=== PATIENT | male | born 1940 | race Caucasian/White ===

== ENCOUNTER 2017-07-24 09:37 | Inpatient (IN) | payer OTHER ==
[2017-07-24] MEDS ORDERED: FAMOTIDINE 20 MG TAB PO ONE (09:43)
[2017-07-24] MEDS ORDERED: DIAZEPAM 5 MG TAB PO ONE (09:43)
[2017-07-24] MEDS ORDERED: diphenhydrAMINE 25 MG CAP PO ONE ×2 (09:43→10:07)
[2017-07-24] MEDS ORDERED: NS 1,000 ML IV ONE (09:43)
[2017-07-24] MEDS ORDERED: ASPIRIN EC 325 MG TAB PO ONE ×2 (09:43→10:07)
--- NOTE | 2017-07-24 10:02 | CPEKG ---
Heart Rate: 88 RR Interval: 682 P-R Interval: 168 QRSD Interval: 112 QT Interval: 420 QTC Interval: 509 P [place]: 72 QRS [place]: 68 T Wave [place]: 61 EKG Severity - ABNORMAL ECG - EKG Impression: SINUS RHYTHM EKG Impression: INCOMPLETE RIGHT BUNDLE BRANCH BLOCK EKG Impression: BORDERLINE ST DEPRESSION, LATERAL LEADS Electronically Signed By: Manish Curry 27-Jul-2017 17:35:53
[2017-07-24] MEDS ORDERED: DIAZEPAM 5 MG TAB ONE (10:07)
[2017-07-24] MEDS ORDERED: FAMOTIDINE 20 MG TAB ONE (10:07)
[2017-07-24 10:31] LABS: % IMMATURE GRANULYOCYTES 0.2 % (0.0-1.1); ABSOLUTE IMMATURE GRANULOCYTES 0.01 10^3/uL (0.00-0.10); ADD DIFF? NO; ADD MORPH? NO; ADD SCAN? NO; ATYPICAL LYMPHOCYTE FLAG 20 (0-99); FRAGMENT RBC FLAG 0 (0-99); HEMATOCRIT 48.8 % (40.0-51.0); HEMOGLOBIN 16.8 g/dL (13.7-17.5); LEFT SHIFT FLG 0 (0-99); LIPEMIA HEMOLYSIS FLAG 90 (0-99); MEAN CELL HEMOGLOBIN 29.8 pg (27.9-34.1); MEAN CELL HEMOGLOBIN CONCENTR. 34.4 g/dL (32.4-36.7); MEAN CELL VOLUME 86.7 fL (81.5-99.8); MEAN PLATELET VOLUME 8.9 fL (8.7-11.7); PLATELET CLUMPS FLAG 0 (0-99); PLATELET COUNT 190 10^3/uL (150-400); RED BLOOD CELL COUNT 5.63 10^6/uL (4.40-6.38)
[2017-07-24 10:40] LABS: INR 1.03 (0.83-1.16); PROTIME(PATIENT) 13.4 SEC (12.0-15.0)
--- NOTE | 2017-07-24 10:43 | PDPROPOC ---
Sedation Plan of Care Sedation Plan of Care: vital signs stable, mental status noted, patient educated of risks, benefits, alternatives, patient can tolerate sedation ASA Classification: ASA 2 Planned drugs: fentanyl, midazolam Mallampati Score: Class 2 Mallampati Reference Image: Patient passed 3-3-2 rule?: Yes
--- NOTE | 2017-07-24 10:44 | PDHPUP ---
History & Physical Update H&P update statement: This history and physical update is based on an assessment of the patient which was completed after admission or registration (within 24 hours), but prior to the surgery/procedure. H&P update: H&P reviewed & patient examined, no change in patient's condition since H&P completed
[2017-07-24 10:45] LABS: ANION GAP 13 mEq/L (8-16); CALCIUM 9.8 mg/dL (8.5-10.4); CARBON DIOXIDE 24 mEq/l (22-31); CHLORIDE 102 mEq/L (97-110); CHOLESTEROL 207 mg/dL (140-220); CHOLESTEROL/HDL RATIO 7.14 RATIO (1.00-4.97); CREATININE 0.9 mg/dL (0.7-1.3); GLOMERULAR FILTRATION RATE > 60; GLUCOSE 150 mg/dL (70-100); HIGH DENSITY LIPOPROTEIN 29 mg/dL (40-65); LDL/HDL RATIO 4.59 RATIO (1.00-3.64); LOW DENSITY LIPOPROTEIN 133 mg/dL (80-100); MAGNESIUM 1.9 mg/dL (1.6-2.3); NON-HIGH DENSITY LIPOPROTEIN 178 mg/dL (90-129); POTASSIUM 3.6 mEq/L (3.5-5.2); SODIUM 139 mEq/L (134-144); TRIGLYCERIDE 226 mg/dL (40-150); VERY LOW DENSITY LIPOPROTEINS 45 mg/dL (8-25)
[2017-07-24] MEDS ORDERED: LIDOCAINE 1% 300 MG/30 ML SDV ONE (10:53)
[2017-07-24] MEDS ORDERED: VERAPAMIL 5 MG/2 ML VIAL ONE (10:54)
[2017-07-24] MEDS ORDERED: MIDAZOLAM 2 MG/2 ML VIAL ONE (10:54)
[2017-07-24] MEDS ORDERED: IOPAMIDOL (ISOVUE-370) 150 ML BTL IV ONE (10:54)
[2017-07-24] MEDS ORDERED: HEPARIN 10,000 UNIT/10 ML MDV ONE (10:54)
[2017-07-24] MEDS ORDERED: fentaNYL 100 MCG/2 ML INJ ONE (10:54)
[2017-07-24] MEDS ORDERED: ATROPINE SULFATE 1 MG/10 ML SYR IVP PRN (12:01)
[2017-07-24] MEDS ORDERED: ONDANSETRON 4 MG/2 ML VIAL IVP PRN (12:01)
[2017-07-24] MEDS ORDERED: NITROGLYCERIN 0.4 MG BTL SL PRN (12:01)
--- NOTE | 2017-07-24 12:01 | POSTOPPROG ---
Post Op Note Date of Operation: 07/24/17 Surgeon: Halle Amaya Anesthesia: IV Sedation Pre-op Diagnosis: CAD, unstable angina Post-op Diagnosis: multivessel CAD Indication: unstable angina Procedure: LHC, cor angio, LV gram Findings: multivessel CAD Inf/Abcess present in the surg proc area at time of surgery?: No EBL: Minimal Total fluids administered: 150 cc NS Complications: none Specimen(s): none
[2017-07-24] MEDS ORDERED: D50W 25 GM/50 ML SYR IVP PRN (15:24)
--- NOTE | 2017-07-24 16:03 | PDGENHP ---
History and Physical - Chief Complaint Severe 3VD - History of Present Illness [address] Stock on 07/23 with c/o exertional left neck and jaw pain, a decrease in physical stamina, and frequent night sweats s/p LHC today and found to have severe 3-vessel CAD in need of surgical revascularization. Pt denies associated light-headedness, nausea, chest pain, SOB, abdominal pain, or LE edema. History Information - Allergies/Home Medication List Allergies/Adverse Reactions: JOSH Inhibitors Allergy (Severe, Verified 07/24/17 10:42) Cough cimetidine [From Tagamet] Allergy (Severe, Verified 07/24/17 10:42) Other-Enter Comments atorvastatin Allergy (Verified 07/23/17 17:58) Other-Enter Comments Sulfa (Sulfonamide Antibiotics) Allergy (Verified 06/25/14 17:56) Rash Home Medications: Aspirin EC [Aspirin EC 325 mg (*)] 325 mg PO HS 07/24/17 [Last Taken 07/22/17] Azelastine [Astelin Nasal [place] (RX)] 1 sprays EACHNARE HS 07/24/17 [Last Taken 07/22/17] Chlorthalidone [Chlorthalidone 25 mg (*)] 25 mg PO DAILY 07/24/17 [Last Taken ] Cholecalciferol Vit D3 [Vitamin D3 (*)] 1,000 units PO HS 07/24/17 [Last Taken 07/22/17] Cyanocobalamin [Vitamin B12 (*)] 1,000 mcg PO DAILY 07/24/17 [Last Taken ] Glimepiride [Amaryl 2 MG (*)] 2 mg PO DAILY 07/24/17 [Last Taken 07/23/17] Herbals/Supplements -Info Only 1 ea PO DAILY 07/24/17 [Last Taken Unknown] Multivitamins [Multivitamin (*)] 1 each PO HS 07/24/17 [Last Taken 07/22/17] Rosuvastatin Calcium [Crestor 10mg (RX)] 10 mg PO HS 07/24/17 [Last Taken ] Tamsulosin HCl [Flomax 0.4 MG (*)] 0.8 mg PO DAILY 07/24/17 [Last Taken 07/23/17 ] metFORMIN HCL [Glucophage 500 mg (*)] 1,000 mg PO BIDMEAL 07/24/17 [Last Taken 07/23/17 09:00] I have personally reviewed and updated: family history, medical history, social history, surgical history - Past Medical History diabetes type 2, hyperlipidemia Additional medical history: renal stones, BPH, prostate cancer s/p seed implantation, pyloric stenosis, retinal detachment, cataracts - Surgical History Additional surgical history: TURP, urethral stent placement, prostate seed implantation, cataract surgery, retinal surgery, pyloric stenosis - Social History Smoking Status: Never smoked Alcohol Use: None Drug Use: None Review of Systems Review of Systems: Constitutional: Reports: diaphoresis EENMT: Reports: sore throat Cardiac: Denies: chest pain, edema, lightheadedness, palpitations Respiratory: Denies: cough, shortness of breath Gastrointestinal: Denies: abdominal pain Genitourinary: Denies: dysuria, frequency, incontinence Muscolosketal: Reports: joint pain (left jaw), neck pain (left) Skin: Reports: no symptoms Neurological: Reports: no symptoms Physical Exam Physical Exam: Constitutional: no apparent distress, appears nourished, not in pain Eyes: anicteric sclera Ears, Nose, Mouth, Throat: moist mucous membranes, hearing normal Cardiovascular: regular rate and rhythym, No systolic murmur Peripheral Pulses: 2+: dorsalis-pedis (R), dorsalis-pedis (L) Respiratory: no respiratory distress, no rales or rhonchi, clear to auscultation Gastrointestinal: soft, non-tender abdomen Skin: warm, normal color, mottled Neurologic: AAOx3 Psychiatric: interacting appropriately, not anxious, not encephalopathic, thought process linear Lab Data & Imaging Review 07/24/17 10:24 07/24/17 10:24 WBC 4.44 10^3/uL (3.80-9.50) 07/24/17 10:24 RBC 5.63 10^6/uL (4.40-6.38) 07/24/17 10:24 Hgb 16.8 g/dL (13.7-17.5) 07/24/17 10:24 Hct 48.8 % (40.0-51.0) 07/24/17 10:24 MCV 86.7 fL (81.5-99.8) 07/24/17 10:24 MCH 29.8 pg (27.9-34.1) 07/24/17 10:24 MCHC 34.4 g/dL (32.4-36.7) 07/24/17 10:24 RDW 14.0 % (11.5-15.2) 07/24/17 10:24 Plt Count 190 10^3/uL (150-400) 07/24/17 10:24 MPV 8.9 fL (8.7-11.7) 07/24/17 10:24 Neut % (Auto) 44.7 % (39.3-74.2) 07/24/17 10:24 Lymph % (Auto) 41.9 % (15.0-45.0) 07/24/17 10:24 [place] % (Auto) 9.2 % (4.5-13.0) 07/24/17 10:24 Eos % (Auto) 2.9 % (0.6-7.6) 07/24/17 10:24 Baso % (Auto) 1.1 % (0.3-1.7) 07/24/17 10:24 Nucleat RBC Rel Count 0.0 % (0.0-0.2) 07/24/17 10:24 Absolute Neuts (auto) 1.98 10^3/uL (1.70-6.50) 07/24/17 10:24 Absolute Lymphs (auto) 1.86 10^3/uL (1.00-3.00) 07/24/17 10:24 Absolute Monos (auto) 0.41 10^3/uL (0.30-0.80) 07/24/17 10:24 Absolute Eos (auto) 0.13 10^3/uL (0.03-0.40) 07/24/17 10:24 Absolute Basos (auto) 0.05 10^3/uL (0.02-0.10) 07/24/17 10:24 Absolute Nucleated RBC 0.00 10^3/uL (0-0.01) 07/24/17 10:24 Immature Gran % 0.2 % (0.0-1.1) 07/24/17 10:24 Immature Gran # 0.01 10^3/uL (0.00-0.10) 07/24/17 10:24 PT 13.4 SEC (12.0-15.0) 07/24/17 10:24 INR 1.03 (0.83-1.16) 07/24/17 10:24 Sodium 139 mEq/L (134-144) 07/24/17 10:24 Potassium 3.6 mEq/L (3.5-5.2) 07/24/17 10:24 Chloride 102 mEq/L (97-110) 07/24/17 10:24 Carbon Dioxide 24 mEq/l (22-31) 07/24/17 10:24 Anion Gap 13 mEq/L (8-16) 07/24/17 10:24 BUN 23 mg/dL (7-23) 07/24/17 10:24 Creatinine 0.9 mg/dL (0.7-1.3) 07/24/17 10:24 Estimated GFR > 60 07/24/17 10:24 Glucose 150 mg/dL (70-100) H 07/24/17 10:24 Calcium 9.8 mg/dL (8.5-10.4) 07/24/17 10:24 Magnesium 1.9 mg/dL (1.6-2.3) 07/24/17 10:24 Triglycerides 226 mg/dL (40-150) H 07/24/17 10:24 Cholesterol 207 mg/dL (140-220) 07/24/17 10:24 Cholesterol Risk Factr 1.8 (0.2-1.0) H 07/24/17 10:24 LDL Cholesterol, Calc 133 mg/dL (80-100) H 07/24/17 10:24 LDL Risk Factor 1.4 (0.2-1.0) H 07/24/17 10:24 VLDL Cholesterol 45 mg/dL (8-25) H 07/24/17 10:24 Non-HDL Cholesterol 178 mg/dL (90-129) H 07/24/17 10:24 HDL Cholesterol 29 mg/dL (40-65) L 07/24/17 10:24 LDL/HDL Ratio 4.59 RATIO (1.00-3.64) H 07/24/17 10:24 Cholesterol/HDL Ratio 7.14 RATIO (1.00-4.97) H 07/24/17 10:24 Imaging Review: CXR, carotids and TTE pending EKG Interpretation: Positive for: normal sinsus rhythm Assessment & Plan Assessment: 77M with severe 3VD Plan: For CABG 07/27 at 1:[address] Jones
[2017-07-24] MEDS: METOPROLOL TARTRATE 25 MG TAB PO SCH ×2 (17:14→21:03)
--- NOTE | 2017-07-24 17:25 | CPIP ---
[f rep st] INVASIVE CARDIAC PROCEDURE DATE OF PROCEDURE: 07/24/2017 Cardiac Catheterization Report PROCEDURES: 1. Left heart catheterization. 2. Coronary angiography. 3. Left ventriculography. COMPLICATIONS: None apparent. INDICATIONS: Crescendo angina in a patient with known coronary disease. DESCRIPTION OF PROCEDURE: N.p.o. status was confirmed, informed consent obtained, and time-out perfo rmed. The patient was brought to the catheterization laboratory and prepped and draped in sterile fa shion. Adequate conscious sedation was achieved with Versed and fentanyl IV. 1% lidocaine was used for local anesthesia of the right radial area. Using modified Seldinger technique, a 5-[place] introd ucer sheath was placed in the right radial artery. JL-4 catheter was used to image the right coronar y artery. JL3.5 catheter was used for left coronary angiography. Pigtail catheter was used for left ventriculography. FINDINGS: 1. Right coronary artery is dominant. There is diffuse coronary disease throughout this vessel with serial 60% to 70% lesions in the mid vessel, 80% bifurcation disease at the level of the PDA and PLV branches. There is evidence of collaterals to the left anterior descending artery from the right co ronary system. 2. The left main is heavily calcified. It is a short segment. It bifurcates into the LAD and left circumflex systems. There is approximately 40% left main stenosis. 3. The LAD is heavily calcified throughout its course. It is 100% occluded in its midportion just a fter the 2nd diagonal. There is a trickle of flow into the distal vessel. There are 2 principal luiza gonals. Each appear diffusely diseased with ostial stenosis of 60% off the LAD. 4. The left circumflex is heavily calcified and diffusely diseased. There is a very large obtuse ma rginal branch with subbranches. In the proximal obtuse marginal there is a 99% stenosis. In the mid obtuse marginal there is another 99% stenosis. The circumflex proper is diffusely diseased without flow-limiting stenosis. . LEFT VENTRICULOGRAPHY: The left ventricular ejection fraction is 55% with apical hypokinesis. Visua lized portions of the ascending and descending aorta appear normal. HEMODYNAMICS: Aortic pressure is 112/72, LV pressure 115/12 with an end-diastolic pressure of 17. T here is no significant gradient upon pullback from the LV into the aorta, indicating no significant a ortic stenosis. CONCLUSIONS: 1. Significant multivessel disease in this patient with hypertension and diabetes. Plan for cardiot horacic surgery consultation for consideration of surgical revascularization. 2. Fairly normal left heart filling pressures. 3. The patient's right radial arteriotomy site was sealed with a TR band. He was taken to [facility] in st able condition. Results discussed with the patient and his . /[id number]/MODL
[2017-07-24] MEDS: INSULIN LISPRO 100 UNIT/ML SC SCH (17:33)
--- NOTE | 2017-07-24 17:46 | GHP ---
[f rep st] HISTORY AND PHYSICAL DATE OF ADMISSION: 07/24/2017 Cardiology Admission History and Physical. PRIMARY PROMOTION WRITER: Dr. Joey Stock. CHIEF COMPLAINT: Multivessel coronary disease with unstable angina. HISTORY OF PRESENT ILLNESS: The patient is a very pleasant 77-year-old male with a history of high p ositive calcium score (2000), diabetes, hypertension, and dyslipidemia. He has previously had proble ms with CK elevation with statins, but has recently been tolerating Crestor. He was seen by Dr. Stock yesterday in clinic. His chief complaint was throat and neck discomfort no table with exercise and associated with significant diaphoresis. This is primarily on the left side of his throat in the base of his jaw. He describes discomfort as a 10/10. Symptoms were relieved wi th rest. He has not had dyspnea, palpitations, or syncope. Over the past few weeks, his symptoms have progressed such that just walking around his house causes throat and jaw discomfort. Because of his accelerating symptoms highly suspicious for angina, he was admitted for coronary angiogram today, performed by me. Please see separate report. In summary, the patient has severe multivessel disease including RCA and PDA disease, significant disease of a large obtuse marginal, and complete occlusion of the mid LAD w ith [id number] collaterals. His ejection fraction is 55% with apical hypokinesis. Overall fairly normal left heart filling pressures. He is now being admitted with unstable angina for planned surg ical revascularization early next week. ALLERGIES: JOSH inhibitors, cimetidine, atorvastatin, and sulfa. REVIEW OF SYSTEMS: A full 10-point Review of Systems was performed, was negative except that which w as outlined in History of Present Illness. PAST MEDICAL HISTORY: 1. Coronary disease. 2. Hypertension. 3. Dyslipidemia. 4. Diabetes. 5. BPH. 6. History of kidney stones. 7. Prostate cancer. 8. History of osteomyelitis of his right ankle when he was a teenager. OUTPATIENT MEDICATIONS: Aspirin 325 mg daily; coenzyme Q10; folic acid; losartan 25 mg daily; metfor min, which has been held for his procedure; Crestor 10 mg daily; tamsulosin. SOCIAL HISTORY: The patient is . His and son are at the bedside. He is a retired profe ssor. He does not smoke cigarettes or drink significant amount of alcohol. PHYSICAL EXAM: VITAL SIGNS: Blood pressure 117/80, heart rate 84, oxygen saturation 94% on room air . GENERAL: Well-appearing older male in no acute distress. CARDIOVASCULAR: Regular rate and rhyth m without murmur or gallop. LUNGS: Clear to auscultation bilaterally. There are rhonchi. ABDOMEN: Soft, nontender, nondistended without bruits, masses, or hepatosplenomegaly. EXTREMITIES: Warm an d well perfused without cyanosis, clubbing, or edema. Intact distal pulses. NEURO: Alert and orien annabella x3 without gross focal neurologic deficits. LABORATORY DATA: CBC is normal. INR normal. Basic metabolic panel is normal except for glucose of 150. Triglycerides 226. LDL 133. EKG: Sinus rhythm. Nonspecific interventricular conduction delay. Carotid ultrasound and echocardiogram are pending. ASSESSMENT AND PLAN: 77-year-old male found to have multivessel coronary disease including occlusion of his mid left anterior descending on angiogram. His symptoms of unstable angina with progressive exertional angina now occurring at very low levels of activity. Given his severe multivessel disease and unstable symptoms, he does warrant inpatient admission and cardiac surgery evaluation. 1. Coronary disease: He will be on aspirin, statin. Will add beta lauryn. Continue angiotensin r eceptor lauryn. Tentative plan is for Dr. Jones to perform coronary bypass on Thursday, July 2n d. Await carotid Doppler studies and echocardiogram, but he does not have a history of valvular dise ase or a murmur on exam. 2. Hypertension: Continue outpatient medications and add beta lauryn. 3. Diabetes: Insulin sliding scale. Hold metformin for 48 hours post catheterization. Resume glim epiride. 4. Dyslipidemia: His low-density lipoprotein is not at goal, but he recently just started Crestor. Continue this. 5. Code status: Full. 6. Prophylaxis: We will put him on sequential compression devices and low-dose Lovenox. /[id number]/MODL
[2017-07-24] MEDS: ASPIRIN EC 325 MG TAB PO SCH (21:02)
[2017-07-24] MEDS: CHOLECALCIFEROL VIT D3 1,000 UNITS TAB PO SCH (21:02)
[2017-07-24] MEDS: ROSUVASTATIN CALCIUM 10 MG TAB PO SCH (21:04)
[2017-07-24] MEDS: AZELASTINE 0.15% EACHNARE SCH (21:09)
[2017-07-25 05:07] LABS: ANION GAP 11 mEq/L (8-16); CALCIUM 9.7 mg/dL (8.5-10.4); CARBON DIOXIDE 24 mEq/l (22-31); CHLORIDE 103 mEq/L (97-110); CREATININE 0.9 mg/dL (0.7-1.3); GLOMERULAR FILTRATION RATE > 60; GLUCOSE 136 mg/dL (70-100); POTASSIUM 3.9 mEq/L (3.5-5.2); SODIUM 138 mEq/L (134-144)
[2017-07-25] MEDS: TAMSULOSIN HCL 0.4 MG CAP PO SCH (08:02)
[2017-07-25] MEDS: CYANO/VITAMIN B12 1000 MCG TAB PO SCH (08:03)
[2017-07-25] MEDS: METOPROLOL TARTRATE 25 MG TAB PO SCH ×2 (08:03→20:55)
[2017-07-25] MEDS: GLIMEPIRIDE 2 MG TAB PO SCH (08:03)
[2017-07-25] MEDS: CHLORTHALIDONE 25 MG TAB PO SCH (08:03)
[2017-07-25] MEDS: ENOXAPARIN 40 MG/0.4 ML SYR SC SCH (08:05)
[2017-07-25] MEDS: INSULIN LISPRO 100 UNIT/ML SC SCH ×3 (08:08→18:03)
--- NOTE | 2017-07-25 10:53 | ECHO ---
[email or web address] [address] [address] Main: [phone] Fax: Transthoracic Echocardiogram Name: CHUYITA SONG MR#: [id number] Study Date: 07/25/2017 Study Time: 07:15 AM Date of : 1940 Age: 77 year(s) Height: 241.3 cm (95 in.) Weight: 94.35 kg (208 lb.) BSA: 2.65 m2 Gender: Male Examination: Echo Indication: Pre op CABG Image Quality: Contrast: Requested by: Halle Amaya BP: 134 mmHg/86 mmHg Heart Rate: Rhythm: Indication: Pre op CABG Procedure Staff Auto Rebuilder: Melany Ayers Reading Physician: Edvin Sanders Requesting Provider: Conclusions: 1)Low normal LV systolic function with a LVEF of 53% and possible focal apical wall motion abnormality. 2)Mild diastolic dysfunction noted. 3)Moderate aortic valve sclerosis without stenosis. Mild AI noted. 4)Mild TR with estimated normal PA pressures. 5)Moderately enlarged ascending thoracic aorta (4.1cm). Measurements: Chambers Valvular Assessment AV/MV Valvular Assessment TV/PV Normal Normal Normal Name Value Range Name Value Range Name Value Range Ao Christina (MM): 4.1 cm (2.2 cm-3.7 AV Vmax: 0.75 m/s (1 m/s-1.7 TR Vmax: 2.28 mm/s ( - ) cm) m/s) TR PGmax: 21 mmHg ( - ) IVSd (2D): 0.9 cm (0.6 cm-1.1 AV maxP mmHg ( - ) syst. PAP: 26 mmHg ( - ) cm) MV E Vmax: 0.39 m/s ( - ) LVDd (2D): 4.8 cm (4.2 cm-5.9 MV A Vmax: 0.70 m/s ( - ) cm) MV E/A: 0.56 ( - ) LVDs (2D): 3.1 cm (2.1 cm-4 cm) LVPWd (2D): 0.9 cm (0.6 cm-1 cm) LVEF (MOD4): 53 % (>=55 %) Continued Measurements: Chambers Valvular Assessment AV/MV Valvular Assessment TV/PV Name Value Name Value Name Value LADs: 3.6 cm MV E/E' Septal: 7.80 CVP (est.): 5 mmHg LADs Lon.7 cm MV E/E' Lateral: 9.30 Patient: CHUYITA SONG Study Date: 07/25/2017 Page 1 of 2 07:15 AM LA Area: 14.0 cm2 LA Volume: 33 ml LA Volume Index: 12.5 ml/m2 Findings: Left Ventricle: Normal size left ventricle. The LVEF is 53%. Overall poor echo images but could have focal apical wall motion abnormality. There is mild diastolic dysfunction noted. Right Ventricle: Normal size right ventricle. Left Atrium: The left atrium is normal in size. Right Atrium: The right atrium is normal in size. Mitral Valve: The mitral valve is normal in appearance. There is no MV prolapse. Aortic Valve: The aortic valve is tri-leaflet. The aortic leaflets are mildy sclerotic. Mild aortic valve regurgitation is present. Tricuspid Valve: The tricuspid valve appears normal. Mild tricuspid regurgitation is present. The pulmonary artery pressure is normal. Pulmonic Valve: The pulmonic valve is normal in appearance. Pericardium: No pericardial effusion. There is pericardial fat. (No Signature Object) Patient: CHUYITA SONG Study Date: 07/25/2017 Page 2 of 2 07:15 AM [id number]
--- NOTE | 2017-07-25 13:05 | PDCARPN ---
Cardiology Progress Note Chief Complaint: Patient reports fatigue of waiting for surgery. Assessment/Plan: Assessment: Mr Horan is a 77-year-old male with significant past history hyper tension comma hyperlipidemia, diabetes, and subclinical CAD based off of cardiac calcium scoring 1999. Recently seen in our office for complain of neck discomfort for with exercise with associated diaphoresis. Underwent cardiac catheterization on 07/[address] Amaya noting to have significant multivessel disease, EF was 55% with apical hypokinesis. CT surgery consultation was done, and patient waiting to undergo CABG scheduled for July 27Thursday morning. Echocardiogram done this morning showing EF 53%, mild diastolic dysfunction, mild AI, mild TR. Patient reports today that he has had no chest pain, jaw pain, shortness of breath, diaphoresis, or symptoms suggesting of ischemia. He has been up in walking the PCU without difficulties. Continuous cardiac monitoring has noted him to be in sinus rhythm with occasional premature ventricular contraction. Right wrist site, catheter insertion site, without redness, swelling, drainage, or ecchymosis. Capillary refill in right hand within normal limits, +2 radial pulses. Plan: 1. CAD: 3 VD, plan for CABG on Thursday. Patient continue on aspirin therapy, started on beta-lauryn, tolerating well. Remains on statin therapy. 2. Hypertension: Well controlled. Patient has continued on home chlorthalidone and in addition to new metoprolol dosage. Continue to monitor. 3. Hyperlipidemia: Continue on home dose Crestor. LDL on admission was 133, consideration increasing dosage post surgery. 4. Diabetes: Metformin on hold, sliding-scale insulin, resumed glimepride 5. BPH: Patient has resume home dose of Flomax. 6. DVT prophylaxis: Patient on prophylactic dose Lovenox 07/25/17 13:03 Subjective: Patient denies of any chest pressure, pain, shortness of breath, orthopnea, PND, lightheadedness, palpitations, near-syncope, or syncopal events. Reviewed/Discussed With: family (Patient and son), other (Alessia GUTIERREZ CT surgery, Dr Mitchell) Objective: Vital Signs (8 Hrs) Temp Pulse Resp BP Pulse Ox 07/25/17 12:07 36.5 C 88 18 124/78 H 94 Intake/Output (24 Hrs) 07/24/17 07/25/17 07/26/17 05:59 05:59 05:59 Intake Total 2100 Balance 2100 Intake: Oral (ml) 1600 IV Intake (ml) 500 Other: Weight 94.8 kg 94.8 kg Intake Quantity Yes Sufficient Number of Voids Toilet 1 Result Diagrams: 07/24/17 10:24 07/25/17 04:04 - Physical Exam Constitutional: WDWN, healthy appearing, no apparent distress Ears, Nose, Mouth, Throat: moist mucous membranes Cardiovascular: regular rate and rhythm, no murmurs, no rubs, pulses symmetric bilat, No jugular vein distention, No carotid bruit Peripheral Pulses: 2+: carotid (R), carotid (L), dorsalis-pedis (R), dorsalis- pedis (L) Respiratory: clear to auscultate bilat, no crackles, no wheezes Gastrointestinal: normoactive bowel sounds, no tenderness, no masses Skin: no rashes, warm, no edema, other ( Right wrist, catheter insertion site, without redness swelling drainage ecchymosis, or hematoma. Cap refill to right hand within limits.) Neurologic: AAOx3 Psychiatric: cooperative, interactive, following commands ICD10 Worksheet Patient Problems: Problems Problem Status Onset Acute unilateral obstructive uropathy Acute
--- NOTE | 2017-07-25 16:30 | ASMTCMCOM ---
CM Note CM Note Notes: Reviewed chart re: d/c poc, pt's progress. Pt admitted w/ left neck and jaw pain. LHC revealed severe 3 vessel dx. Pt to have scheduled CABG on Thursday07/27/17. Pt has a supportive . Discharge needs remain TBD at this time. CM will cont to follow. Date Signed: 07/25/2017 04:29 PM Electronically Signed By:Vilma Ballard RN
[2017-07-25] MEDS: ROSUVASTATIN CALCIUM 10 MG TAB PO SCH (20:53)
[2017-07-25] MEDS: CHOLECALCIFEROL VIT D3 1,000 UNITS TAB PO SCH (20:57)
[2017-07-25] MEDS: ASPIRIN EC 325 MG TAB PO SCH (20:58)
[2017-07-26] MEDS: AZELASTINE 0.15% EACHNARE SCH ×2 (00:21→22:40)
[2017-07-26 05:22] LABS: ANION GAP 11 mEq/L (8-16); CALCIUM 9.7 mg/dL (8.5-10.4); CARBON DIOXIDE 23 mEq/l (22-31); CHLORIDE 103 mEq/L (97-110); GLOMERULAR FILTRATION RATE > 60; GLUCOSE 154 mg/dL (70-100); MAGNESIUM 2.1 mg/dL (1.6-2.3); POTASSIUM 4.1 mEq/L (3.5-5.2); SODIUM 137 mEq/L (134-144)
--- NOTE | 2017-07-26 09:08 | SOAPPROG ---
TIFFANY Progress Note Assessment/Plan: Assessment: 77 y/o man with exertional angina, IDDM and found to have multivessel obstructive CAD with LVEF 55% and mild valvular abnormalities. Overall doing okay with no recurrent angina, decompensated CHF sx or signs of infection. PLAN: 1)no change in current meds. 2)carotid u/s done and pending. 3)vascular studies not done yet. 4)needs to meet CT surgery and have questions answered. 5)plan for CABG tommorrow Thursday at 1pm. 07/26/17 09:05 Subjective: denies recurrent CP or throat tightness. No fevers, chills, cough or melena. Ambulating hallway slowly without sx. Objective: Vital Signs Temp Pulse Resp BP Pulse Ox 37.2 C 93 15 120/81 H 94 07/26/17 08:00 07/26/17 08:00 07/26/17 08:00 07/26/17 08:00 07/26/17 08:00 Laboratory Results 07/24/17 10:24 07/26/17 04:25 07/25/17 07/26/17 07/27/17 05:59 05:59 05:59 Intake Total 2100 900 Balance 2100 900 PT 13.4 SEC (12.0-15.0) 07/24/17 10:24 INR 1.03 (0.83-1.16) 07/24/17 10:24 Physical Exam - Physical Exam General Appearance: alert, obese EENT: normal ENT inspection Neck: non-tender Respiratory: lungs clear Cardiac/Chest: regular rate, rhythm, systolic murmur (1/6 MILADIS heard), No gallop , No JVD Peripheral Pulses: 2+: carotid (R), carotid (L), femoral (R), femoral (L), dorsalis-pedis (R), dorsalis-pedis (L) Abdomen: non-tender, No organomegaly, No rebound Skin: warm/dry Extremities: No pedal edema Neuro/Psych: oriented x 3 ICD10 Worksheet Patient Problems: Problems Problem Status Onset Acute unilateral obstructive uropathy Acute
[2017-07-26] MEDS: ENOXAPARIN 40 MG/0.4 ML SYR SC SCH (09:14)
[2017-07-26] MEDS: METOPROLOL TARTRATE 25 MG TAB PO SCH ×2 (09:14→22:36)
[2017-07-26] MEDS: CYANO/VITAMIN B12 1000 MCG TAB PO SCH (09:14)
[2017-07-26] MEDS: TAMSULOSIN HCL 0.4 MG CAP PO SCH (09:15)
[2017-07-26] MEDS: CHLORTHALIDONE 25 MG TAB PO SCH (09:15)
[2017-07-26] MEDS: GLIMEPIRIDE 2 MG TAB PO SCH (09:16)
[2017-07-26] MEDS: INSULIN LISPRO 100 UNIT/ML SC SCH ×3 (09:16→18:20)
[2017-07-26] MEDS ORDERED: MUPIROCIN 2% 22 GM OINT NS ONE (09:31)
[2017-07-26] MEDS ORDERED: MAGNESIUM HYDROXIDE 30 ML UDCUP PO PRN (14:13)
[2017-07-26] MEDS ORDERED: BISACODYL 10 MG SUPP PR PRN (14:13)
[2017-07-26] MEDS ORDERED: LACTULOSE 20 GM/30 ML UDCUP PO PRN (14:13)
[2017-07-26] MEDS ORDERED: POLYETHYLENE GLYCOL 3350 17 GM PKT PO PRN (14:13)
[2017-07-26] MEDS ORDERED: CHLORHEXIDINE GLUC HIBICLENS 118 ML BTL TP SCH (21:00)
[2017-07-26] MEDS: ASPIRIN EC 325 MG TAB PO SCH (22:00)
[2017-07-26] MEDS: SENNOSIDES/DOCUSATE SODIUM TAB PO SCH (22:35)
[2017-07-26] MEDS: CHOLECALCIFEROL VIT D3 1,000 UNITS TAB PO SCH (22:36)
[2017-07-26] MEDS: ROSUVASTATIN CALCIUM 10 MG TAB PO SCH (22:36)
[2017-07-27 01:55] LABS: HEMOGLOBIN A1C 7.1 % (4.0-6.0)
[2017-07-27] MEDS: MUPIROCIN 2% 22 GM OINT NS SCH ×2 (06:23→09:52)
[2017-07-27] MEDS ORDERED: CHLORHEXIDINE GLUC HIBICLENS 118 ML BTL TP ONE (08:00)
[2017-07-27] MEDS: TAMSULOSIN HCL 0.4 MG CAP PO SCH (09:49)
[2017-07-27] MEDS: INSULIN LISPRO 100 UNIT/ML SC SCH (09:49)
[2017-07-27] MEDS: SENNOSIDES/DOCUSATE SODIUM TAB PO SCH (09:50)
[2017-07-27] MEDS: METOPROLOL TARTRATE 25 MG TAB PO SCH (09:50)
[2017-07-27] MEDS: CHLORTHALIDONE 25 MG TAB PO SCH (09:51)
[2017-07-27] MEDS: CYANO/VITAMIN B12 1000 MCG TAB PO SCH (09:51)
[2017-07-27] MEDS ORDERED: AMINOCAPROIC ACID 5 GM/20 ML VIAL IV ONE (10:00)
[2017-07-27] MEDS ORDERED: PHENYLEPHRINE HCL 50 MG in NS 250 ML IV ONE (10:00)
[2017-07-27] MEDS ORDERED: MANNITOL 20% 50 GM/250 ML BAG IV ONE (10:00)
[2017-07-27] MEDS ORDERED: CITRATE DEXTROSE SOLN 500 ML BAG MISC ONE (10:00)
[2017-07-27] MEDS ORDERED: VERAPAMIL 5 MG, NITROGLYCERIN 2.5 MG, HEPARIN 500 UNIT, SODIUM BICARBONATE 0.2 MEQ in L... MISC ONE (10:00)
[2017-07-27] MEDS ORDERED: INSULIN REGULAR HUMAN 100 UNIT in NS 100 ML IV ONE (10:00)
[2017-07-27] MEDS ORDERED: niCARdipine/NACL 200 ML IV SCH (10:00)
[2017-07-27] MEDS ORDERED: SODIUM BICARBONATE 20 MEQ, LIDOCAINE 1% 10 ML in NORMOSOL-R 1,000 ML MISC ONE (10:00)
[2017-07-27] MEDS ORDERED: NOREPINEPHRINE BITARTRATE 16 MG in NS 250 ML IV ONE (10:00)
[2017-07-27] MEDS ORDERED: PAPAVERINE HCL 60 MG in NS 100 ML IV ONE (10:00)
[2017-07-27] MEDS ORDERED: ceFAZolin 2 GM/DEXTROSE 100 ML IV ONE (10:00)
--- NOTE | 2017-07-27 11:33 | ASMTCMCOM ---
CM Note CM Note Notes: Pt chart reviewed. He is for surgery later today or maybe tomorrow. Needs TBD after that. CM to follow. Date Signed: 07/27/2017 11:33 AM Electronically Signed By:Felipa Cotter RN
[2017-07-27] MEDS ORDERED: ROCURONIUM 100 MG/10 ML VIAL ONE (11:42)
[2017-07-27] MEDS ORDERED: PHENYLEPHRINE 10 MG/ML SDV ONE (11:42)
[2017-07-27] MEDS ORDERED: LIDOCAINE 2% 5 ML SDV ONE (11:43)
[2017-07-27] MEDS ORDERED: POTASSIUM Cl (KCl) 20 MEQ/50 ML BAG IV ONE ×2 (12:02→14:59)
[2017-07-27] MEDS ORDERED: MILRINONE/DEXTROSE/100 ML BAG IV ONE ×2 (12:02→14:59)
[2017-07-27] MEDS ORDERED: PROTAMINE SULFATE 50 MG/5 ML VIAL IVP ONE ×2 (12:02→14:58)
[2017-07-27] MEDS ORDERED: CALCIUM CHLORIDE 1 GM/10 ML INJ ONE ×3 (12:02→14:59)
[2017-07-27] MEDS ORDERED: AMINOCAPROIC ACID 5 GM/20 ML VIAL ONE ×3 (12:03→15:00)
[2017-07-27] MEDS ORDERED: NA BICARBONATE 50 MEQ/50 ML VIAL ONE ×3 (12:03→15:00)
[2017-07-27] MEDS ORDERED: DOPamine/DEXTROSE/250 ML BAG IV ONE ×2 (12:03→15:00)
[2017-07-27] MEDS ORDERED: niCARdipine/NACL/200 ML BAG IV ONE ×2 (12:03→15:00)
[2017-07-27] MEDS ORDERED: ADENOSINE 6 MG/2 ML VIAL ONE ×2 (12:04→15:01)
[2017-07-27] MEDS ORDERED: ceFAZolin 1 GM VIAL ONE ×2 (12:04→15:02)
[2017-07-27] MEDS ORDERED: AMIODARONE HCL 150 MG/3 ML VIAL ONE ×3 (12:04→15:01)
[2017-07-27] MEDS ORDERED: HEPARIN 10,000 UNIT/10 ML MDV ONE ×3 (12:04→15:01)
[2017-07-27] MEDS ORDERED: ALBUMIN 5% 250 ML BOTTLE IV ONE (12:05)
[2017-07-27] MEDS ORDERED: MAGNESIUM SULFATE 1 GM/2 ML VIAL ONE (12:06)
[2017-07-27] MEDS ORDERED: CITRATE DEXTROSE SOLN 500 ML BAG ONE (12:06)
[2017-07-27] MEDS ORDERED: LIDOCAINE 2% 100 MG/5 ML SYR ONE (12:06)
[2017-07-27] MEDS ORDERED: methylPREDNISolone SOD SUCC 1 GM/8 ML VIAL ONE (12:07)
[2017-07-27] MEDS ORDERED: THROMBIN (BOVINE) 5,000 UNIT VIAL TP ONE ×2 (12:20→19:13)
[2017-07-27] MEDS ORDERED: VANCOMYCIN 1 GM VIAL ONE ×2 (12:20→19:13)
[2017-07-27] MEDS ORDERED: MIDAZOLAM 2 MG/2 ML VIAL IVP ONE ×2 (12:21→19:25)
--- NOTE | 2017-07-27 12:23 | PDANEPAE ---
ANE History of Present Illness cab ANE Past Medical History - Cardiovascular History Hx Hypertension: Yes Hx Chest Pain: Yes Hx Coronary Artery / Peripheral Vascular Disease: Yes Hx CHF / Valvular Disease: No Hx Palpitations: No - Pulmonary History Hx COPD: No Hx Asthma/Reactive Airway Disease: No Hx Recent Upper Respiratory Infection: No Hx Oxygen in Use at Home: No Hx Sleep Apnea: No Sleep Apnea Screening Result - Last Documented: Negative - Neurologic History Hx Cerebrovascular Accident: No Hx Seizures: No Hx Dementia: No - Endocrine History Hx Diabetes: Yes Hypothyroid: No Hyperthyroid: No Obesity: no - Renal History Hx Renal Disorders: Yes Renal History Comment: multiple kidney stones - Liver History Hx Hepatic Disorders: No - Chronic Pain History Chronic Pain: No ANE Review of Systems Review of Systems: - Exercise capacity Exercise capacity: <4 METS ANE Patient History - Allergies Allergies/Adverse Reactions: JOSH Inhibitors Allergy (Severe, Verified 07/24/17 10:42) Cough cimetidine [From Tagamet] Allergy (Severe, Verified 07/24/17 10:42) Other-Enter Comments atorvastatin Allergy (Verified 07/23/17 17:58) Other-Enter Comments Sulfa (Sulfonamide Antibiotics) Allergy (Verified 06/25/14 17:56) Rash - Home Medications Home Medications: Aspirin EC [Aspirin EC 325 mg (*)] 325 mg PO HS 07/24/17 [Last Taken 07/22/17] Azelastine [Astelin Nasal [place] (RX)] 1 sprays EACHNARE HS 07/24/17 [Last Taken 07/22/17] Chlorthalidone [Chlorthalidone 25 mg (*)] 25 mg PO DAILY 07/24/17 [Last Taken ] Cholecalciferol Vit D3 [Vitamin D3 (*)] 1,000 units PO HS 07/24/17 [Last Taken 07/22/17] Cyanocobalamin [Vitamin B12 (*)] 1,000 mcg PO DAILY 07/24/17 [Last Taken ] Glimepiride [Amaryl 2 MG (*)] 2 mg PO DAILY 07/24/17 [Last Taken 07/23/17] Herbals/Supplements -Info Only 1 ea PO DAILY 07/24/17 [Last Taken Unknown] Multivitamins [Multivitamin (*)] 1 each PO HS 07/24/17 [Last Taken 07/22/17] Rosuvastatin Calcium [Crestor 10mg (RX)] 10 mg PO HS 07/24/17 [Last Taken ] Tamsulosin HCl [Flomax 0.4 MG (*)] 0.8 mg PO DAILY 07/24/17 [Last Taken 07/23/17 ] metFORMIN HCL [Glucophage 500 mg (*)] 1,000 mg PO BIDMEAL 07/24/17 [Last Taken 07/23/17 09:00] - NPO status NPO Status: no food or drink >8 hours NPO Since - Liquids (Date): 07/27/17 NPO Since - Liquids (Time): 00:01 NPO Since - Solids (Date): 07/27/17 NPO Since - Solids (Time): 00:01 - Smoking Hx Smoking Status: Never smoked - Alcohol Use Alcohol Use: None ANE Labs/Vital Signs - Labs Result Diagrams: 07/24/17 10:24 07/26/17 04:25 - Vital Signs Blood Pressure: 113/89 Heart Rate: 88 Respiratory Rate: 17 O2 Sat (%): 95 Height: 187.2 cm Weight: 93.5 kg ANE Physical Exam - Airway Mallampati Score: Class 2 Mouth exam: normal dental/mouth exam - Pulmonary Pulmonary: no respiratory distress - Cardiovascular Cardiovascular: no murmur, rub, or gallop - ASA Status ASA Status: III ANE Anesthesia Plan Anesthesia Plan: general endotracheal anesthesia Lines/Monitors: arterial line, central line, ARNAUD
[2017-07-27] MEDS ORDERED: PROPOFOL 200 MG/20 ML VIAL ONE (12:34)
[2017-07-27] MEDS ORDERED: fentaNYL 100 MCG/2 ML INJ ONE ×5 (12:34)
[2017-07-27] MEDS ORDERED: LR 1,000 ML IV ONE (12:37)
[2017-07-27] MEDS ORDERED: CEFAZOLIN 2 GM/DEXTROSE/100 ML BAG IV ONE (12:54)
[2017-07-27] MEDS ORDERED: MIDAZOLAM 2 MG/2 ML VIAL ONE ×2 (13:04→22:05)
--- NOTE | 2017-07-27 13:06 | PDHPUP ---
History & Physical Update H&P update statement: This history and physical update is based on an assessment of the patient which was completed after admission or registration (within 24 hours), but prior to the surgery/procedure. H&P changes: preop imaging unremarkable
[2017-07-27] MEDS ORDERED: PHENYLEPHRINE HCL 100 MCG/ML SYR ONE ×2 (20:10→20:59)
[2017-07-27] MEDS ORDERED: PROPOFOL/EMULSION 500 MG/50 ML BOTTLE IV ONE (21:44)
[2017-07-27] MEDS ORDERED: NS 1,000 ML IV SCH (23:45)
[2017-07-27] MEDS ORDERED: PROPOFOL/EMULSION 1,000 MG/100 ML BOTTLE IV ONE (23:45)
[2017-07-27] MEDS ORDERED: INSULIN REGULAR HUMAN 100 UNIT in NS 100 ML IV SCH (23:45)
[2017-07-27] MEDS ORDERED: fentanYL/NACL/100 ML BAG IV ONE (23:46)
--- NOTE | 2017-07-27 23:47 | POSTOPPROG ---
Post Op Note Date of Operation: 07/27/17 Surgeon: Alf Jones Car Inspection And Repair Manager: Kelly Perdomo PA-C Anesthesiologist: Finesse Isidro Anesthesia: GET(General Endotracheal) Pre-op Diagnosis: symptomatic multivessel CAD Post-op Diagnosis: same Indication: crescendo angina Procedure: CABG x 3, SÁNCHEZ-LAD, SV-OM1, SV-PDA Findings: poor targets w diffusely calcified vessels Inf/Abcess present in the surg proc area at time of surgery?: No EBL: unable to quantify Drains: Other (clarisse chest tubes x 2)
[2017-07-27] MEDS ORDERED: METOCLOPRAMIDE 10 MG/2 ML VIAL IVP PRN (23:50)
[2017-07-27] MEDS ORDERED: ONDANSETRON 4 MG/2 ML VIAL IVP PRN (23:50)
[2017-07-27] MEDS ORDERED: MEPERIDINE 25 MG/ML SYR IVP PRN (23:50)
[2017-07-27] MEDS ORDERED: fentaNYL 100 MCG/2 ML INJ IVP PRN (23:50)
[2017-07-27] MEDS ORDERED: ACETAMINOPHEN 325 MG TAB PO PRN (23:50)
[2017-07-27] MEDS ORDERED: MAGNESIUM SULF 2 GM/WATER 50 ML IV ONE (23:50)
[2017-07-27] MEDS ORDERED: PANTOPRAZOLE SODIUM 40 MG in NS 100 ML IV ONE (23:50)
[2017-07-27] MEDS ORDERED: ONDANSETRON DISINTEGRATING 4 MG TAB PO PRN (23:50)
[2017-07-27] MEDS ORDERED: POTASSIUM Cl (KCl) 20 MEQ in NS 50 ML IV PRN (23:50)
[2017-07-27] MEDS ORDERED: SODIUM CL NASAL 45 ML BTL EACHNARE PRN (23:50)
[2017-07-27] MEDS ORDERED: ACETAMINOPHEN 650 MG SUPP PR PRN (23:50)
[2017-07-27] MEDS ORDERED: CEPACOL LOZENGE PO PRN (23:50)
[2017-07-28] MEDS ORDERED: NALOXONE HCL 0.4 MG/ML INJ IVP PRN
--- NOTE | 2017-07-28 00:03 | POSTANESTH ---
Post Anesthetic Evaluation Cardiovascular Status: Normal, Stable Respiratory Status: Other, See Comment (stable on vent) Level of Consciousness/Mental Status: Other, See Comment (sedated with propofol) Pain Control: Adequate, Prn Tx Ordered Nausea/Vomiting Control: Adequate, Prn Tx Ordered Complications Possibly Related to Anesthesia: None Noted
[2017-07-28] MEDS ORDERED: PROPOFOL/EMULSION 100 ML IV SCH (00:04)
[2017-07-28] MEDS ORDERED: fentaNYL/NACL 100 ML IV SCH (00:04)
--- NOTE | 2017-07-28 00:33 | CPEKG ---
Heart Rate: 92 RR Interval: 652 P-R Interval: 172 QRSD Interval: 114 QT Interval: 420 QTC Interval: 520 P [place]: 67 QRS [place]: 63 T Wave [place]: 64 EKG Severity - ABNORMAL ECG - EKG Impression: SINUS RHYTHM EKG Impression: INCOMPLETE RIGHT BUNDLE BRANCH BLOCK EKG Impression: BORDERLINE R WAVE PROGRESSION, ANTERIOR LEADS Electronically Signed By: Chad Pollard 28-Jul-2017 08:43:29
[2017-07-28] MEDS ORDERED: NOREPINEPHRINE BITARTRATE 16 MG in NS 250 ML IV SCH (00:45)
[2017-07-28] MEDS: INSULIN LISPRO 100 UNIT/ML SC SCH ×5 (01:18→17:16)
[2017-07-28] MEDS: ALBUMIN 5% 250 ML IV PRN ×2 (01:32→03:42)
[2017-07-28] MEDS: POTASSIUM Cl (KCl) 20 MEQ in NS 50 ML IV PRN ×5 (02:39→21:06)
[2017-07-28] MEDS: MUPIROCIN 2% 22 GM OINT NS SCH ×3 (03:51→21:15)
[2017-07-28] MEDS: AZELASTINE 0.15% EACHNARE SCH ×2 (03:51→22:13)
[2017-07-28 05:01] LABS: CALCULATED OXYGEN SATURATION 94 % (92-95); O2 CONCENTRATIION 60 % (0-100)
[2017-07-28] MEDS: ceFAZolin 2 GM/DEXTROSE 100 ML IV SCH ×3 (05:27→21:06)
[2017-07-28 05:30] LABS: % IMMATURE GRANULYOCYTES 0.2 % (0.0-1.1); ABSOLUTE IMMATURE GRANULOCYTES 0.02 10^3/uL (0.00-0.10); ADD DIFF? NO; ADD MORPH? NO; ADD SCAN? NO; ATYPICAL LYMPHOCYTE FLAG 0 (0-99); BASE EXCESS -2.3 mEq/L (-2.5-2.5); BICARBONATE 23 mEq/L (22-26); FRAGMENT RBC FLAG 0 (0-99); HEMATOCRIT 36.3 % (40.0-51.0); HEMOGLOBIN 12.3 g/dL (13.7-17.5); LEFT SHIFT FLG 0 (0-99); LIPEMIA HEMOLYSIS FLAG 90 (0-99); MEAN CELL HEMOGLOBIN 30.3 pg (27.9-34.1); MEAN CELL HEMOGLOBIN CONCENTR. 33.9 g/dL (32.4-36.7); MEAN CELL VOLUME 89.4 fL (81.5-99.8); MEASURED OXYGEN SATURATION 98 % (92-95); PCO2 44 mmHg (34-38); PLATELET CLUMPS FLAG 0 (0-99); PLATELET COUNT 150 10^3/uL (150-400); PO2 103 mmHg (65-75); RED BLOOD CELL COUNT 4.06 10^6/uL (4.40-6.38); RED CELL DISTRIBUTION WIDTH 14.1 % (11.5-15.2); TCO2 24 mEq/L (23-27)
[2017-07-28 05:37] LABS: CPAP YES; END TIDAL CO2 30; O2 CONCENTRATIION 40 % (0-100); P/F RATIO 258 RATIO; PRESSURE SUPPORT 7
[2017-07-28 05:38] LABS: PATIENT RATE 7
[2017-07-28 06:34] LABS: ANION GAP 8 mEq/L (8-16); CALCIUM 8.2 mg/dL (8.5-10.4); CARBON DIOXIDE 22 mEq/l (22-31); CHLORIDE 109 mEq/L (97-110); CREATININE 0.9 mg/dL (0.7-1.3); GLOMERULAR FILTRATION RATE > 60; GLUCOSE 144 mg/dL (70-100); POTASSIUM 4.5 mEq/L (3.5-5.2); SODIUM 139 mEq/L (134-144)
[2017-07-28] MEDS: NS 1,000 ML IV SCH ×2 (07:00→12:13)
--- NOTE | 2017-07-28 07:31 | SOAPPROG ---
SOAP Progress Note Assessment/Plan: POD #1: CABGx3 (SÁNCHEZ-LAD, SVG-OM1, SVG-PDA) Unstable angina/severe 3VD s/p CABGx3 - Wean Levophed for MAPs 65 - BB/ASA/statin when appropriate - AL to remain while on Levo, FC to be dc'd, CT to remain on suction Acute blood loss anemia - Stable without the need for blood product transfusions DM 2, well-controlled - Insulin gtt to be transitioned to ISS - Metformin and Amaryl to resume once eating h/o prostate CA s/p brachytherapy with obstructive and irritative LUTS - Will resume Flomax Subjective: No complaints. Comfortable. Objective: Vital Signs Temp Pulse Resp BP Pulse Ox 36.9 C 92 12 97/49 L 97 07/28/17 06:00 07/28/17 06:00 07/28/17 06:00 07/28/17 06:00 07/28/17 06:00 Laboratory Results 07/28/17 05:21 07/28/17 05:21 07/27/17 07/28/17 07/29/17 05:59 05:59 05:59 Intake Total 100 619.9 Output Total 1485 Balance 100 -865.1 PT 13.4 SEC (12.0-15.0) 07/24/17 10:24 INR 1.03 (0.83-1.16) 07/24/17 10:24 Physical Exam - Physical Exam General Appearance: WD/WN, alert, no apparent distress EENT: No scleral icterus (R), No scleral icterus (L) Neck: normal inspection Respiratory: No respiratory distress Cardiac/Chest: regular rate, rhythm Abdomen: non-tender, soft, No distended Skin: normal color, warm/dry Extremities: No pedal edema Neuro/Psych: no motor/sensory deficits, alert, normal mood/affect, oriented x 3 ICD10 Worksheet Patient Problems: Problems Problem Status Onset Acute blood loss anemia Acute CAD, multiple vessel Acute Exertional angina Acute S/P CABG x 3 Acute ~07/27/17 BPH (benign prostatic hyperplasia) Chronic Diabetes mellitus type 2, controlled Chronic
[2017-07-28] MEDS ORDERED: ALBUMIN 5% 250 ML IV ONE (09:24)
--- NOTE | 2017-07-28 10:07 | GCON ---
[f rep st] CONSULTATION RETORT SETTER CONSULTATION Patient examined postoperatively after receiving multiple vessel coronary artery bypass grafts. 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 He is examined postoperatively after receiving a 4-vessel CABG. His surgery was late in the evening. He was not extubated until early t his morning. The patient is currently awake and alert. He is complaining of some chest pain. He de nies any shortness of breath, however, he is still somewhat groggy. PAST MEDICAL HISTORY: Significant for coronary artery disease, hyperlipidemia, benign prostatic hype rtrophy, prostate cancer, kidney stones, diabetes, hypertension. ALLERGIES: JOSH inhibitors, cimetidine, atorvastatin, sulfa. SOCIAL HISTORY: No history of tobacco use. Infrequent alcohol use. He is has excellent horsham clinicy support. He is a retired professor. MEDICATIONS: At home include Crestor, tamsulosin, metformin, losartan, folic acid, aspirin, coenzyme -Q. PHYSICAL EXAM: VITAL SIGNS: Blood pressure 107/56, pulse is 90, respirations 11, temperature 36.6, oxygen saturation 95% on 2 L. GENERAL: He is a well-developed, well-nourished, 77-year-old, white m ankur, who is resting comfortably on supplemental oxygen. HEENT: Eyes are PERRLA, EOMI. Throat shows no erythema or tonsillar hypertrophy. NECK: Supple. There is no cervical adenopathy. HEART: Reg ular rate and rhythm with a 2/6 systolic murmur at left sternal border without radiation. CHEST: In cision is healing. LUNGS: Showed diminished breath sounds, but no wheeze. ABDOMEN: Soft, nontender. Bowel sounds are present in all 4 quadrants. EXTREMITIES: No clubbing, cyanosis, or edema. LABORATORIES: White count 11.3, hemoglobin 11, hematocrit 36, platelet count is 150. Sodium is 140, potassium 4.0, chloride 106, CO2 is 22, BUN is 20, creatinine 0.9, glucose is 144. Arterial blood g as: PH 7.33, pCO2 of 44, pO2 of 103, bicarb is 21, oxygen saturation is 94%, that was on mechanical ventilation. Chest x-ray shows tubes in good position, otherwise clear. IMPRESSION: 1. Status post 4-vessel coronary artery bypass graft. 2. Coronary artery disease. 3. Hypertension. 4. Diabetes. 5. History of prostate cancer. RECOMMENDATIONS: 1. Adequate pain control. 2. Continue supplemental oxygen at this time. 3. Aggressive blood sugar control. 4. Deep vein thrombosis and pulmonary embolus prophylaxis, holding anticoagulation for now. 5. Stress ulcer prophylaxis. 6. PT and OT. /[id number]/MODL
[2017-07-28] MEDS: PANTOPRAZOLE SODIUM 40 MG TAB PO SCH (10:19)
[2017-07-28] MEDS ORDERED: CALCIUM CHLORIDE 1 GM/10 ML INJ ONE (11:10)
--- NOTE | 2017-07-28 11:41 | ASMTCMCOM ---
CM Note CM Note Notes: Patient in ICU after CABG x 4. Patient lives with his . Therapies to evaluate and tx and determine discharge needs.CM to follow. Date Signed: 07/28/2017 11:41 AM Electronically Signed By:Juana Gonsalves LCSW
[2017-07-28] MEDS ORDERED: FUROSEMIDE 20 MG/2 ML VIAL IVP ONE (14:24)
[2017-07-28] MEDS: METOPROLOL TARTRATE 25 MG TAB PO SCH ×2 (14:50→21:07)
[2017-07-28] MEDS: OXYCODONE/APAP 5/325 TAB PO PRN ×2 (14:51→22:18)
[2017-07-28] MEDS: HYDROCODONE/APAP 5/325 TAB PO PRN (22:18)
[2017-07-29] MEDS: HYDROCODONE/APAP 5/325 TAB PO PRN (04:44)
[2017-07-29 05:26] LABS: ANION GAP 7 mEq/L (8-16); CALCIUM 8.7 mg/dL (8.5-10.4); CARBON DIOXIDE 28 mEq/l (22-31); CHLORIDE 103 mEq/L (97-110); CREATININE 0.9 mg/dL (0.7-1.3); GLOMERULAR FILTRATION RATE > 60; GLUCOSE 126 mg/dL (70-100); POTASSIUM 4.3 mEq/L (3.5-5.2); SODIUM 138 mEq/L (134-144)
[2017-07-29 05:32] LABS: % IMMATURE GRANULYOCYTES 0.2 % (0.0-1.1); ABSOLUTE IMMATURE GRANULOCYTES 0.02 10^3/uL (0.00-0.10); ADD DIFF? NO; ADD MORPH? NO; ADD SCAN? NO; ATYPICAL LYMPHOCYTE FLAG 10 (0-99); FRAGMENT RBC FLAG 0 (0-99); HEMATOCRIT 40.3 % (40.0-51.0); HEMOGLOBIN 13.3 g/dL (13.7-17.5); LEFT SHIFT FLG 0 (0-99); LIPEMIA HEMOLYSIS FLAG 80 (0-99); MEAN PLATELET VOLUME 9.5 fL (8.7-11.7); PLATELET CLUMPS FLAG 0 (0-99); PLATELET COUNT 155 10^3/uL (150-400); RED BLOOD CELL COUNT 4.43 10^6/uL (4.40-6.38); RED CELL DISTRIBUTION WIDTH 14.5 % (11.5-15.2)
[2017-07-29] MEDS: ceFAZolin 2 GM/DEXTROSE 100 ML IV SCH ×2 (06:42→14:27)
--- NOTE | 2017-07-29 08:12 | SOAPPROG ---
SOAP Progress Note Assessment/Plan: Assessment: POD#2 CABGx3 (SÁNCHEZ-LAD, SVG-OM1, SVG-PDA), EVH left thigh Sx CAD w borderline low LV systolic fx - s/p CABGx3. Improved LV systolic fx post revasc. No prolonged vasoactive support or dysrhythmias. No significant volume overload. Secondary prevention with ASA, BB, and statin. AF prophylaxis w BB. Acute expected blood loss anemia - Stable. No transfusions required. VTE prophylaxis w SCDs. DM2 - Well-controlled by preop A1c of 7.1%. Postop hyperglycemia managed with insulin gtt, transitioning to SSI. OHAs to resume in staggered fashion pending oral intake and stability of renal fx. Hx prostate CA, brachytherapy and irritative LUTS - Controlled on Flomax. No voiding difficulties post gerardo removal. Plan: Convert blakes to bulb suction. Cont metoprolol 12.5 mg BID. Start 1/2 dose home Metformin. Switch to oral diuresis. Resume Crestor. Resume Flomax. Inc activity as tolerated. Tx to PCU. 07/29/17 08:07 Subjective: Feels fine. No nausea or dizziness. Slept well. Good dinner. Satisfactory analgesia. 1 lap around ICU last noc well tolerated. IS ~ 1,000. Objective: Vital Signs Temp Pulse Resp BP Pulse Ox 36.6 C 88 15 99/59 L 98 07/29/17 08:00 07/29/17 08:00 07/29/17 08:00 07/29/17 08:00 07/29/17 08:00 Laboratory Results 07/29/17 05:00 07/29/17 05:00 07/28/17 07/29/17 07/30/17 05:59 05:59 05:59 Intake Total 619.9 2743 Output Total 1485 3800 Balance -865.1 -1057 PT 13.4 SEC (12.0-15.0) 07/24/17 10:24 INR 1.03 (0.83-1.16) 07/24/17 10:24 SR with MAPs 70s. Min suppl O2 req. Excellent diuresis post IV lasix. +6 kg overall. Labs as expected. FSBG < 180. Physical Exam - Physical Exam General Appearance: alert, no apparent distress Respiratory: crackles (bases), other (blakes x 2 to pleurovac, serosang drainage , +tidal, no air leak) Cardiac/Chest: regular rate, rhythm, friction rub, other (Sternum grossly stable. Sternotomy and LLE venotomy CDI. Vwires intact.) Abdomen: non-tender, soft Skin: warm/dry Extremities: swelling (trace - 1+ dependent), other ICD10 Worksheet Patient Problems: Problems Problem Status Onset Acute blood loss anemia Acute CAD, multiple vessel Acute Exertional angina Acute S/P CABG x 3 Acute ~07/27/17 BPH (benign prostatic hyperplasia) Chronic Diabetes mellitus type 2, controlled Chronic
[2017-07-29] MEDS: MUPIROCIN 2% 22 GM OINT NS SCH (08:42)
[2017-07-29] MEDS: METOPROLOL TARTRATE 25 MG TAB PO SCH ×2 (08:43→21:48)
[2017-07-29] MEDS: ASPIRIN 81 MG CHEWABLE TAB PO SCH (08:43)
[2017-07-29] MEDS: OXYCODONE/APAP 5/325 TAB PO PRN (08:43)
[2017-07-29] MEDS: INSULIN LISPRO 100 UNIT/ML SC SCH ×3 (08:43→18:26)
[2017-07-29] MEDS: PANTOPRAZOLE SODIUM 40 MG TAB PO SCH (08:43)
--- NOTE | 2017-07-29 08:52 | PDINTPN ---
Fiberglass Technician Progress Note Assessment/Plan: Assessment: * Coronary artery disease * Status post multivessel coronary artery bypass graft * Hyperlipidemia * History of prostate cancer * Diabetes-controlled * Pain-markedly improved * Hypertension-controlled Plan: PT/OT Out of bed to chair Continue pain control Subjective: Sitting up in bed. Comfortable. Pain is tolerable. Objective: Vital Signs Temp Pulse Resp BP Pulse Ox 36.6 C 88 15 99/59 L 98 07/29/17 08:00 07/29/17 08:00 07/29/17 08:00 07/29/17 08:00 07/29/17 08:00 Laboratory Results 07/29/17 05:00 07/29/17 05:00 07/28/17 07/29/17 07/30/17 05:59 05:59 05:59 Intake Total 619.9 2743 Output Total 1485 3800 Balance -865.1 -1057 PT 13.4 SEC (12.0-15.0) 07/24/17 10:24 INR 1.03 (0.83-1.16) 07/24/17 10:24 Physical Exam - Physical Exam General Appearance: WD/WN, alert, no apparent distress EENT: PERRL/EOMI, normal ENT inspection, pharynx normal, TMs normal Neck: non-tender, full range of motion, supple, normal inspection Respiratory: crackles (Few basilar), No respiratory distress, No wheezing Cardiac/Chest: normal peripheral pulses, regular rate, rhythm, systolic murmur Peripheral Pulses: 2+: carotid (R), carotid (L), femoral (R), femoral (L), dorsalis-pedis (R), dorsalis-pedis (L) Abdomen: normal bowel sounds, non-tender, soft Male Genitalia: deferred Rectal: deferred Skin: normal color, warm/dry Extremities: normal range of motion, non-tender, normal inspection, normal capillary refill Neuro/Psych: no motor/sensory deficits, alert, normal mood/affect, oriented x 3 ICD10 Worksheet Patient Problems: Problems Problem Status Onset Acute blood loss anemia Acute CAD, multiple vessel Acute Exertional angina Acute S/P CABG x 3 Acute ~07/27/17 BPH (benign prostatic hyperplasia) Chronic Diabetes mellitus type 2, controlled Chronic
[2017-07-29] MEDS: metFORMIN HCL 500 MG TAB PO SCH ×2 (10:27→18:24)
[2017-07-29] MEDS: GLIMEPIRIDE 2 MG TAB PO SCH (10:28)
[2017-07-29] MEDS: TAMSULOSIN HCL 0.4 MG CAP PO SCH (10:28)
[2017-07-29] MEDS: SENNOSIDES/DOCUSATE SODIUM TAB PO SCH ×2 (10:28→21:50)
--- NOTE | 2017-07-29 13:29 | SOAPPROG ---
SOAP Progress Note Assessment/Plan: Assessment: Plan: Subjective: Afebrile VSS NSR Hct 40.3% BMP nl Good UO Up in chair. Minimal pain. Eating Lungs bibasilar rhonchi Cor RRR Wound clean Stable postop. Objective: Vital Signs Temp Pulse Resp BP Pulse Ox 36.6 C 84 17 98/50 L 92 07/29/17 08:00 07/29/17 11:50 07/29/17 11:50 07/29/17 11:50 07/29/17 11:50 Laboratory Results 07/29/17 05:00 07/29/17 05:00 07/28/17 07/29/17 07/30/17 05:59 05:59 05:59 Intake Total 619.9 2743 Output Total 1485 3800 Balance -865.1 -1057 PT 13.4 SEC (12.0-15.0) 07/24/17 10:24 INR 1.03 (0.83-1.16) 07/24/17 10:24 ICD10 Worksheet Patient Problems: Problems Problem Status Onset Acute blood loss anemia Acute CAD, multiple vessel Acute Exertional angina Acute S/P CABG x 3 Acute ~07/27/17 chronic disease mgmt/transitional care Acute BPH (benign prostatic hyperplasia) Chronic Diabetes mellitus type 2, controlled Chronic
[2017-07-29] MEDS ORDERED: FUROSEMIDE 40 MG TAB PO SCH (15:00)
[2017-07-29] MEDS: POTASSIUM CL 20 MEQ TAB PO SCH ×2 (15:51→21:48)
[2017-07-29] MEDS: ROSUVASTATIN CALCIUM 10 MG TAB PO SCH (21:48)
[2017-07-30] MEDS: AZELASTINE 0.15% EACHNARE SCH ×2 (05:49→20:38)
[2017-07-30] MEDS ORDERED: NS 500 ML IV ONE (06:00)
--- NOTE | 2017-07-30 07:31 | SOAPPROG ---
SOAP Progress Note Assessment/Plan: POD #3: CABGx3 (SÁNCHEZ-LAD, SVG-OM1, SVG-PDA), EVH L Unstable angina/severe 3VD s/p CABGx3 - BB/ASA/statin - All chest tubes wires out - SCDs alone for thromboprophylaxis Acute blood loss anemia - Stable without the need for blood product transfusions DM 2, well-controlled - Metformin and Amaryl restarted h/o prostate CA s/p brachytherapy with obstructive and irritative LUTS - No voiding issue, continue Flomax Disposition - Home Thursday without services Subjective: Feels well. Denies light-headedness or weakness. Objective: Vital Signs Temp Pulse Resp BP Pulse Ox 36.9 C 108 H 16 82/61 L 96 07/30/17 04:00 07/30/17 04:00 07/30/17 04:00 07/30/17 04:00 07/30/17 04:00 Laboratory Results 07/29/17 05:00 07/29/17 05:00 07/29/17 07/30/17 07/31/17 05:59 05:59 05:59 Intake Total 2743 720 Output Total 3800 2450 Balance -1057 -1730 PT 13.4 SEC (12.0-15.0) 07/24/17 10:24 INR 1.03 (0.83-1.16) 07/24/17 10:24 Physical Exam - Physical Exam General Appearance: WD/WN, alert, no apparent distress EENT: No scleral icterus (R), No scleral icterus (L) Neck: normal inspection Respiratory: No respiratory distress Cardiac/Chest: regular rate, rhythm Abdomen: non-tender, soft, No distended Skin: normal color, warm/dry Extremities: No pedal edema Neuro/Psych: no motor/sensory deficits, alert, normal mood/affect, oriented x 3 ICD10 Worksheet Patient Problems: Problems Problem Status Onset Acute blood loss anemia Acute CAD, multiple vessel Acute Exertional angina Acute S/P CABG x 3 Acute ~07/27/17 chronic disease mgmt/transitional care Acute BPH (benign prostatic hyperplasia) Chronic Diabetes mellitus type 2, controlled Chronic
[2017-07-30] MEDS: SENNOSIDES/DOCUSATE SODIUM TAB PO SCH ×2 (09:06→20:37)
[2017-07-30] MEDS: metFORMIN HCL 500 MG TAB PO SCH ×2 (09:07→17:21)
[2017-07-30] MEDS: METOPROLOL TARTRATE 25 MG TAB PO SCH ×2 (09:07→20:36)
[2017-07-30] MEDS: GLIMEPIRIDE 2 MG TAB PO SCH (09:07)
[2017-07-30] MEDS: ASPIRIN 81 MG CHEWABLE TAB PO SCH (09:07)
[2017-07-30] MEDS: TAMSULOSIN HCL 0.4 MG CAP PO SCH (09:07)
[2017-07-30] MEDS: PANTOPRAZOLE SODIUM 40 MG TAB PO SCH (09:07)
[2017-07-30] MEDS: INSULIN LISPRO 100 UNIT/ML SC SCH ×3 (09:10→18:26)
[2017-07-30] MEDS: CYANO/VITAMIN B12 1000 MCG TAB PO SCH (09:11)
[2017-07-30] MEDS ORDERED: NS 1,000 ML IV SCH (10:45)
--- NOTE | 2017-07-30 12:37 | ASMTCMCOM ---
CM Note CM Note Notes: CM spoke w/ BRENDA Cisneros regarding d/c POC. Pt will be discharging w/ cardaic rehab when pt is medically stable w/ supportive . CM met w/ pt and to discuss dispo plan. Pt and are agreeable to cardiac rehab. CM available for changes. Date Signed: 07/30/2017 12:36 PM Electronically Signed By:BRUNA Prince
[2017-07-30 15:45] LABS: HEMOGLOBIN 12.8 g/dL (13.7-17.5)
[2017-07-30] MEDS: ROSUVASTATIN CALCIUM 10 MG TAB PO SCH (20:37)
[2017-07-30] MEDS ORDERED: AMIODARONE HCL 100 ML IV ONE (21:09)
[2017-07-30] MEDS ORDERED: AMIODARONE HCL 200 ML IV ONE (21:09)
[2017-07-30] MEDS: CHOLECALCIFEROL VIT D3 1,000 UNITS TAB PO SCH (22:25)
[2017-07-30] MEDS: HEPARIN 5,000 UNIT/0.5 ML SYR SC SCH (22:25)
[2017-07-30] MEDS: MULTIVITAMINS 1 EACH TAB PO SCH (22:25)
[2017-07-31] MEDS ORDERED: AMIODARONE HCL 540 MG in D5W 300 ML IV ONE (04:30)
[2017-07-31] MEDS: HEPARIN 5,000 UNIT/0.5 ML SYR SC SCH ×3 (04:31→21:03)
[2017-07-31 05:41] LABS: ANION GAP 8 mEq/L (8-16); CALCIUM 9.3 mg/dL (8.5-10.4); CARBON DIOXIDE 27 mEq/l (22-31); CHLORIDE 101 mEq/L (97-110); CREATININE 0.9 mg/dL (0.7-1.3); GLOMERULAR FILTRATION RATE > 60; GLUCOSE 144 mg/dL (70-100); POTASSIUM 4.1 mEq/L (3.5-5.2); SODIUM 136 mEq/L (134-144)
--- NOTE | 2017-07-31 06:45 | SOAPPROG ---
SOAP Progress Note Assessment/Plan: Assessment: POD#4 CABGx3 (SÁNCHEZ-LAD, SVG-OM1, SVG-PDA), EVH left thigh Sx CAD w borderline low LV systolic fx - s/p CABGx3. Improved LV systolic fx post revasc. No prolonged vasoactive support or bradydysrhythmias. No significant volume overload. Tubes and wires out. Secondary prevention with ASA , BB, and statin. Postoperative PAF - Converted to SR with amio. Adjunctive escalation of BB as allowed by BP. Acute expected blood loss anemia - Stable. No transfusions required. VTE prophylaxis w SQ hep. DM2 - Well-controlled by preop A1c of 7.1%. Postop hyperglycemia managed with insulin gtt, transitioning to SSI and home OHAs. Hx prostate CA, brachytherapy and irritative LUTS - Controlled on Flomax. No voiding difficulties post gerardo removal. Plan: Inc metoprolol to 25 mg BID. Transition amio to oral tonight. Cont inc activity as tolerated. Dispo - Home tomorrow if rhythm controlled. 07/31/17 06:41 Subjective: Hectic night "IVs and such", slept poorly and tired this am. Objective: Vital Signs Temp Pulse Resp BP Pulse Ox 36.7 C 89 16 117/76 97 07/31/17 04:00 07/31/17 04:00 07/31/17 04:00 07/31/17 04:00 07/31/17 04:00 Laboratory Results 07/30/17 15:35 07/31/17 04:30 07/30/17 07/31/17 08/01/17 05:59 05:59 05:59 Intake Total 1220 2716.7 Output Total 3650 3995 300 Balance -2430 -1278.3 -300 PT 13.4 SEC (12.0-15.0) 07/24/17 10:24 INR 1.03 (0.83-1.16) 07/24/17 10:24 In and out of AT, AF last night. SR restored with amio. SBPs > 100s-110. Adequate RA sats, put back on O2 during dysrhthmias. Vigorous autodiuresis cont. Now within 2 kg admit wt. CXR -> no pulm vasc congestion, tiny residual left pl eff. Improving glycemic control. No correctional insulin yest. - Pending Discharge Pending Discharge Within 24 Hours: Yes Pending Discharge Date: 08/01/17 Pending Discharge Time: 11:00 Physical Exam - Physical Exam General Appearance: alert, no apparent distress Respiratory: decreased breath sounds (left base) Cardiac/Chest: regular rate, rhythm, other (Sternotomy and LLE venotomy CDI) Abdomen: non-tender, soft Skin: normal color, warm/dry Extremities: swelling (trace) ICD10 Worksheet Patient Problems: Problems Problem Status Onset Acute blood loss anemia Acute CAD, multiple vessel Acute Exertional angina Acute S/P CABG x 3 Acute ~07/27/17 chronic disease mgmt/transitional care Acute BPH (benign prostatic hyperplasia) Chronic Diabetes mellitus type 2, controlled Chronic
[2017-07-31] MEDS ORDERED: traMADol 50 MG TAB PO PRN (07:00)
[2017-07-31] MEDS: INSULIN LISPRO 100 UNIT/ML SC SCH ×3 (07:25→17:11)
[2017-07-31] MEDS: TAMSULOSIN HCL 0.4 MG CAP PO SCH (09:11)
[2017-07-31] MEDS: GLIMEPIRIDE 2 MG TAB PO SCH (09:11)
[2017-07-31] MEDS: ASPIRIN 81 MG CHEWABLE TAB PO SCH (09:11)
[2017-07-31] MEDS: CYANO/VITAMIN B12 1000 MCG TAB PO SCH (09:11)
[2017-07-31] MEDS: SENNOSIDES/DOCUSATE SODIUM TAB PO SCH (09:12)
[2017-07-31] MEDS: PANTOPRAZOLE SODIUM 40 MG TAB PO SCH (09:12)
[2017-07-31] MEDS: metFORMIN HCL 500 MG TAB PO SCH ×2 (09:12→17:58)
[2017-07-31] MEDS: METOPROLOL TARTRATE 25 MG TAB PO SCH ×2 (09:13→21:01)
[2017-07-31] MEDS ORDERED: NS 500 ML IV ONE (13:14)
[2017-07-31] MEDS: CHOLECALCIFEROL VIT D3 1,000 UNITS TAB PO SCH (20:59)
[2017-07-31] MEDS ORDERED: SENNOSIDES/DOCUSATE SODIUM TAB PO PRN (21:00)
[2017-07-31] MEDS: AZELASTINE 0.15% EACHNARE SCH (21:00)
[2017-07-31] MEDS: MULTIVITAMINS 1 EACH TAB PO SCH (21:00)
[2017-07-31] MEDS: ROSUVASTATIN CALCIUM 10 MG TAB PO SCH (21:00)
[2017-07-31] MEDS: AMIODARONE HCL 200 MG TAB PO SCH (21:01)
[2017-08-01 05:04] VITALS: PULSE 87
[2017-08-01] MEDS: HEPARIN 5,000 UNIT/0.5 ML SYR SC SCH ×2 (05:23→15:27)
--- NOTE | 2017-08-01 07:10 | SOAPPROG ---
SOAP Progress Note Assessment/Plan: Assessment: POD#5 CABGx3 (SÁNCHEZ-LAD, SVG-OM1, SVG-PDA), EVH left thigh Sx CAD w borderline low LV systolic fx - s/p CABGx3. Improved LV systolic fx post revasc. No prolonged vasoactive support or bradydysrhythmias. No significant volume overload. Tubes and wires out. Secondary prevention with ASA , BB, and statin. Postoperative PAF - Converted to SR with amio. Adjunctive escalation of BB as allowed by BP. Acute expected blood loss anemia - Stable. No transfusions required. VTE prophylaxis w SQ hep. DM2 - Well-controlled by preop A1c of 7.1%. Postop hyperglycemia managed with insulin gtt, transitioning to SSI and home OHAs. Hx prostate CA, brachytherapy and irritative LUTS - Controlled on Flomax. No voiding difficulties post gerardo removal. Plan: Ok for discharge. Instructions re diet, meds, activity, wound care and f/u to be reviewed in presence of . 08/01/17 07:10 Subjective: Feels well. Tolerating light activity w ease. Good appetite. +BM. Ready for home Objective: Vital Signs Temp Pulse Resp BP Pulse Ox 37.1 C 87 12 110/79 93 08/01/17 04:00 08/01/17 04:00 08/01/17 04:00 08/01/17 04:00 08/01/17 04:00 Laboratory Results 07/30/17 15:35 07/31/17 04:30 07/31/17 08/01/17 08/02/17 05:59 05:59 05:59 Intake Total 2716.7 1465 Output Total 3995 3150 Balance -1278.3 -1685 PT 13.4 SEC (12.0-15.0) 07/24/17 10:24 INR 1.03 (0.83-1.16) 07/24/17 10:24 HR and BP controlled. Desats into 80s with sleep o/w off O2. Cont to autodiurese well. Now within 1 kg of admit wt. Physical Exam - Physical Exam General Appearance: alert, no apparent distress Respiratory: lungs clear Cardiac/Chest: regular rate, rhythm, other (Sternum grossly stable. Sternotomy and LLE venotomy CDI) Abdomen: non-tender, soft Skin: warm/dry Extremities: other (no visible edema) ICD10 Worksheet Patient Problems: Problems Problem Status Onset Acute blood loss anemia Acute CAD, multiple vessel Acute Exertional angina Acute S/P CABG x 3 Acute ~07/27/17 chronic disease mgmt/transitional care Acute BPH (benign prostatic hyperplasia) Chronic Diabetes mellitus type 2, controlled Chronic
--- NOTE | 2017-08-01 07:13 | PDHOMEO2F ---
Home Oxygen Face to Face Home Orders: I certify that a physician or a nurse practitioner or physician's trust administrative assistant has had a [id number] encounter with this patient on the date of this order due to the diagnosis listed, which relates to the primary reason the patient requires home oxygen. Alternative treatments have been tried, or considered, and deemed ineffective. It is anticipated that supplemental oxygen will result in improvement with treatment. Home oxygen qualifying diagnosis: CAD SpO2 on room air (%): 82% Frequency of home oxygen needed: continuous Home oxygen liters per minute: 1 Home oxygen delivery device: nasal cannula Concentrator: Yes E-tanks for mobility and back up: Yes If ordering portable O2, is the patient mobile in the home?: Yes I certify that, based on these findings, the home oxygen is medically necessary for this patient for the following length of time. Length of time home oxygen needed: 1 month
[2017-08-01] MEDS: INSULIN LISPRO 100 UNIT/ML SC SCH ×2 (09:22→15:27)
[2017-08-01] MEDS: metFORMIN HCL 500 MG TAB PO SCH (10:07)
[2017-08-01] MEDS: AMIODARONE HCL 200 MG TAB PO SCH (10:07)
[2017-08-01] MEDS: CYANO/VITAMIN B12 1000 MCG TAB PO SCH (10:07)
[2017-08-01] MEDS: TAMSULOSIN HCL 0.4 MG CAP PO SCH (10:07)
[2017-08-01] MEDS: ASPIRIN 81 MG CHEWABLE TAB PO SCH (10:08)
[2017-08-01] MEDS: PANTOPRAZOLE SODIUM 40 MG TAB PO SCH (10:08)
[2017-08-01] MEDS: GLIMEPIRIDE 2 MG TAB PO SCH (10:08)
[2017-08-01] MEDS: METOPROLOL TARTRATE 25 MG TAB PO SCH (10:09)
[2017-08-01 11:06] VITALS: BP 108/65; RESP 11; O2SAT 94
[2017-08-01] MEDS ORDERED: ONDANSETRON DISINTEGRATING 4 MG TAB PO ONE (14:40)
[2017-08-01 14:49] VITALS: TEMP 98.3
--- NOTE | 2017-08-01 15:38 | PDDCSUM ---
Discharge Summary Discharge Summary: DATE OF ADMISSION: 07/24/17 DATE OF DISCHARGE: 08/01/17 DISPOSITION: Home, self-care PRINCIPAL ADMISSION DIAGNOSIS: Crescendo angina PRINCIPAL DISCHARGE DIAGNOSES: 1. Severe progressive coronary artery disease 2. Status post coronary artery bypass grafting x 3 3. Acute expected blood loss anemia 4. Postoperative paroxysmal atrial fibrillation HISTORY OF PRESENT ILLNESS: 77 yo male with multiple cardiac risk factors and increasing frequency of anginal symptoms, admitted for elective cardiac cath. Found to have diffusely calcified coronaries with severe multivessel obstructive disease and referred for surgical revascularization. Preop imaging negative for significant LVSD, LVDD, or valvular dysfx. PERTINENT PAST MEDICAL HISTORY: CAD by EBCT scores, HTN, hyperlipdemia, diabetes mellitus type II, BPH, prostate cancer MEDICATIONS ON ADMISSION: ASA 325 mg daily, Crestor 10 mg daily, metformin 1,000 mg BID, glimeperide 2 mg daily, chlorthalidone 25 mg daily, tamsulosin 0.8 mg daily, MVI daily, Vit D3 1, 000 u HS, Vit B12 1,000 mcg daily, herbal supplement daily, Azelastine nasal spray 1 spray each nares HS ALLERGIES/SENSITIVITIES: Dion inhibitors causing a cough, cimetidine causing personality changes, lipitor (and multiple other statins) causing muscle weakness, sulfa causing a rash BRANCH SERVICES MANAGER: CV surgery (Robert), pulmonology/ICU (Jane) PROCEDURES/IMAGIN/29 (Monique): Left heart catheterization with selective coronary angiography and left ventriculography. Access via right radial artery. 07/24 (Marilyn): Transthoracic echocardiogram 07/24 Carotid ultrasound 07/27 (Robert): Coronary artery bypass grafting x 3 (SÁNCHEZ-LAD, SV-OM1, SV-PDA) . Takedown left internal mammary artery. Endoscopic vein harvest left thigh. ABBREVIATED HOSPITAL COURSE BY ACTIVE PROBLEM LIST: 1. Sx CAD w borderline low LV systolic fx - s/p CABGx3. Improved LV systolic fx post revasc. Hemodynamically stable early postop course. Secondary prevention with ASA, BB, and statin. 2. Postoperative PAF - Converted to SR with amio. Adjunctive escalation of BB as allowed by BP for optimized HR control. 3. Acute expected blood loss anemia - Stable. No transfusions required. H/H > 11 /35 maintained. 4. DM2 - Well controlled by preop A1c of 7.1%. Postop hyperglycemia managed with insulin gtt, transitioning back to OHAs with SSI. No correctional needs on home regimen. 5. Hx prostate CA, brachytherapy and obstructive LUTS - Controlled on Flomax. No voiding difficulties post gerardo removal. DISCHARGE CLINICAL INFORMATION: Sternum grossly stable. Sternotomy and LLE venotomy CDI, sutured, +Dermabond. HR 80s. SBP 110s. SpO2 82% RA asleep, > 90% RA awake. Wt 0.9 kg above admission at 93.5 kilos. WBC 9.16, Hgb 12.8, HCT 38, Plt 155, Na 136, K 4.1, Cr 0.9 FSBG 100s-130s DISCHARGE MEDICATIONS: As on admission with the following adjustments: Hold Chlorthalidone. NEW prescriptions: 1. Amiodarone 200 mg BID thru 08/13 and then 200 mg daily x 2 more weeks. 2. Metoprolol tartrate 25 mg BID. 3. Tramadol 50mg q 6-8h prn incisional discomfort. 4. Zofran 4 mg TID prn nausea. 5. Oxygen @ 1 Lpm continuously before sleep, or as directed by SpO2. FOLLOW UP APPOINTMENTS: 1. CV surgery: with Dr Jung at [facility] on 08/11 at 10:45. 2. Cardiology: with Dr Stock or Dr Amaya at [facility] within 4-6 weeks. Appointment to be established during surgical visit. FOLLOW UP TESTING: CXR prior to surgical appointment.
--- NOTE | 2017-08-01 17:22 | ASMTCMCOM ---
CM Note CM Note Notes: Reviewed chart re: d/c poc, pt's progress. Pt s/p CABG x 3 for severe CAD w/ postop paroxysmal Afib. Pt to discharge home today w/ oxygen and family support. PT/OT rec home w/ no needs. Pt to f/u as directed; being followed by [facility] and outpt cardiac rehab. IM signed. RT to set up home oxygen. CM avail for any further issues or concerns. Date Signed: 08/01/2017 05:22 PM Electronically Signed By:Vilma Ballard RN
--- NOTE | 2017-08-01 18:41 | ASDISCHSUM ---
Discharge Information Plan Status:Home with No Needs Medically Cleared to Leave:08/01/2017 Discharge Date:08/01/2017 05:29 PM CM D/C Disposition:Home, Routine, Self-Care ADT D/C Disposition:Home, Routine, Self-Care Projected Discharge Date:07/31/2017 12:00 AM Transportation at D/C:Family Discharge Delay Reason: Follow-Up Date:07/31/2017 12:00 AM Discharge Slot:2 - 12:01 pm - 18:00 pm Final Diagnosis:severe CAD, CABG x 3, postop paroxysmal afib Placement Information Patient Contact Information Contact Name:CLAUDIA Relationship: Address:[address] City:[place] Alternate Phone: [facility]/Zip Code:[place] [address] Email: Financial Information Financial Class: Primary Plan Desc:MEDICARE INPATIENT Primary Plan Number:[id number] Secondary Plan Desc:MIRYAM Secondary Plan Number:[id number] Assessment Information [facility] CM Progress Note CM Note CM Note Notes: Reviewed chart re: d/c poc, pt's progress. Pt admitted w/ left neck and jaw pain. LHC revealed severe 3 vessel dx. Pt to have scheduled CABG on Thursday07/27/17. Pt has a supportive . Discharge needs remain TBD at this time. CM will cont to follow. Date Signed: 07/25/2017 04:29 PM Electronically Signed By:Vilma Ballard RN [facility] CM Progress Note CM Note CM Note Notes: Pt chart reviewed. He is for surgery later today or maybe tomorrow. Needs TBD after that. CM to follow. Date Signed: 07/27/2017 11:33 AM Electronically Signed By:Felipa Cotter RN [facility] Progress Note CM Note CM Note Notes: Patient in ICU after CABG x 4. Patient lives with his . Therapies to evaluate and tx and determine discharge needs.CM to follow. Date Signed: 07/28/2017 11:41 AM Electronically Signed By:Juana Gonsalves LCSW [facility] CM Progress Note CM Note CM Note Notes: CM spoke w/ BRENDA Cisneros regarding d/c POC. Pt will be discharging w/ cardaic rehab when pt is medically stable w/ supportive . CM met w/ pt and to discuss dispo plan. Pt and are agreeable to cardiac rehab. CM available for changes. Date Signed: 07/30/2017 12:36 PM Electronically Signed By:BRUNA Prince [facility] CM Progress Note CM Note CM Note Notes: Reviewed chart re: d/c poc, pt's progress. Pt s/p CABG x 3 for severe CAD w/ postop paroxysmal Afib. Pt to discharge home today w/ oxygen and family support. PT/OT rec home w/ no needs. Pt to f/u as directed; being followed by [facility] and outpt cardiac rehab. IM signed. RT to set up home oxygen. CM avail for any further issues or concerns. Date Signed: 08/01/2017 05:22 PM Electronically Signed By:Vilma Ballard RN Intervention Information Intervention Type:*IM-Signed Date of Service:08/01/2017 05:21 PM Patient Type:Inpatient Staff Member:TANIA Ballard Taylor Hours: Discipline: Severity: Comment:
== END 2017-08-01 17:29 | disposition home or self-care (01) | DRG 234 ==
LOC: FCATH 09:37 → F2W 15:10 → F2N 07-27 12:40 → F2W 07-27 13:38 → F2N 07-27 17:46 → F2W 07-29 11:20
PROVIDERS: ADMIT Internal Medicine Cardiovascular Disease; ATTEND Thoracic Surgery (Cardiothoracic Vascular Surgery)
PROC: 4A023N7 Measurement of Cardiac Sampling and Pressure, Left Heart, Percutaneous Approach (ICD-10-PCS; 2017-07-24)
PROC: B2111ZZ Fluoroscopy of Multiple Coronary Arteries using Low Osmolar Contrast (ICD-10-PCS; 2017-07-24)
PROC: B2151ZZ Fluoroscopy of Left Heart using Low Osmolar Contrast (ICD-10-PCS; 2017-07-24)
PROC: 06BQ4ZZ Excision of Left Saphenous Vein, Percutaneous Endoscopic Approach (ICD-10-PCS; principal; 2017-07-27 12:30)
PROC: 02100Z9 Bypass Coronary Artery, One Artery from Left Internal Mammary, Open Approach (ICD-10-PCS; principal; 2017-07-27 12:30)
PROC: 5A1221Z Performance of Cardiac Output, Continuous (ICD-10-PCS; principal; 2017-07-27 12:30)
PROC: 021109W Bypass Coronary Artery, Two Arteries from Aorta with Autologous Venous Tissue, Open Approach (ICD-10-PCS; principal; 2017-07-27 12:30)
DX: I25.110 Atherosclerotic heart disease of native coronary artery with unstable angina pectoris (principal); I25.82 Chronic total occlusion of coronary artery; D62 Acute posthemorrhagic anemia; I48.0 Paroxysmal atrial fibrillation; E11.9 Type 2 diabetes mellitus without complications; Z79.4 Long term (current) use of insulin; E78.5 Hyperlipidemia, unspecified; I10 Essential (primary) hypertension; Z87.442 Personal history of urinary calculi; Z85.46 Personal history of malignant neoplasm of prostate
CPT/HCPCS: 82947-QW; 97116-GP; 97161-GP; 97165-GO; 97530-GP; 97535-GO; G8978-GP-CK; G8979-GP-CI; G8987-GO-CK; G8988-GO-CI; J0153; J0171; J0282; J0690; J1265; J1644; J1650; J1815; J1940; J2001; J2250; J2260; J2370; J2405; J2440; J2704; J2720; J2930; J3010; J3370; J7060; P9041; Q9967

== ENCOUNTER → 2017-08-11 | Outpatient (CLI) | payer OTHER | LOC: FIMAGING 13:34 | PROVIDERS: ATTEND Thoracic Surgery (Cardiothoracic Vascular Surgery) | DX: Z48.89 Encounter for other specified surgical aftercare (principal); Z95.1 Presence of aortocoronary bypass graft; J98.11 Atelectasis; J90 Pleural effusion, not elsewhere classified ==

== ENCOUNTER → 2017-08-12 | Outpatient (CLI) | payer OTHER ==
[~2017-08-12] MED LIST: LIDOCAINE 1% 300 MG/30 ML SDV ONE
== END ==
LOC: FIMAGING 10:34
PROVIDERS: ATTEND Thoracic Surgery (Cardiothoracic Vascular Surgery)
PROC: 0W9B3ZZ Drainage of Left Pleural Cavity, Percutaneous Approach (ICD-10-PCS; principal; 2017-08-12)
DX: J90 Pleural effusion, not elsewhere classified (principal)

== ENCOUNTER 2017-08-13 04:58 | Emergency (ER) | payer OTHER ==
--- NOTE | 2017-08-13 05:20 | EDPHY ---
H & P Stated Complaint: constipated x3 days HPI/ROS: HPI CHIEF COMPLAINT: Constipation HISTORY OF PRESENT ILLNESS: This patient very pleasant 69-year-old male, significant past medical history for coronary artery disease status post bypass on July 27. Patient at 3 vessel bypass. He was done here at this hospital he has been recovering well. He denies any significant chest pain or shortness of breath. Denies any significant swelling. His main complaint this evening is constipation. He denies any significant abdominal pain. He reports to me that he has not had a bowel movement in 2 days. 2 days ago he did have a small amount. He states that he past 2-3 heart [facility]. He has not had any vomiting. He has tried stool softeners at home without much relief. He states since July 27 he has had 3 bowel movements. Initially was rather large. He feels constipated. He denies significant bloating or abdominal pain. Past Medical History: Prostate cancer, diabetes, coronary artery disease, urinary retention Past Surgical History: CABG Social History: Denies daily use of drugs alcohol tobacco Family History: Noncontributory. ROS REVIEW OF SYSTEMS: A comprehensive 10 point review of systems is otherwise negative aside from elements mentioned in the history of present illness. Exam Constitutional triage nursing summary reviewed, vital signs reviewed, awake/ alert. Eyes normal conjunctivae and sclera, EOMI, PERRLA. HENT normal inspection, atraumatic, moist mucus membranes, no epistaxis, neck supple/ no meningismus, no raccoon eyes. Respiratory clear to auscultation bilaterally, normal breath sounds, no respiratory distress, no wheezing. Cardiovascular rate normal, regular rhythm, no murmur, no edema, distal pulses normal. Gastrointestinal nondistended, not rigid, no significant tenderness on exam, soft, non-tender, no rebound, no guarding, normal bowel sounds, no distension, no pulsatile mass. Genitourinary no CVA tenderness. Musculoskeletal no midline vertebral tenderness, full range of motion, no calf swelling, no tenderness of extremities, no meningismus, good pulses, neurovascularly intact. Skin pink, warm, & dry, no rash, skin atraumatic. Neurologic awake, alert and oriented x 3, AAOx3, moves all 4 extremities equally, motor intact, sensory intact, CN II-XII intact, normal cerebellar, normal vision, normal speech. Psychiatric normal mood/affect. Heme/Lymph/Immune no lymphadenopathy. Differential diagnosis includes but is not limited to and in no particular order : Constipation, fecal impaction Bowel obstruction, appendicitis, gallbladder disease, diverticulitis, colitis, enteritis, perforated viscus, gastritis, GERD , esophagitis, urinary tract infection, pyelonephritis, kidney stones Medical Decision Making: Plan for this patient x-ray KUB, IV establishment fluid bolus, gentle IV hydration, abdominal blood work. Re-evaluation: ED x-ray KUB: KUB reviewed. Shows constipation. No free air. No bowel obstruction. Bowel gas pattern consistent with acute constipation. Blood work is reviewed is unremarkable. Patient's abdomen is soft nontender no guarding or peritoneal signs. He is not vomiting. Recommend MiraLax 2 packets with large amount of water and fruits and vegetables. Additionally can return emergency room if he develops worsening abdominal pain fever vomiting or does not have a bowel movement. He understands. Discussed at length patient. Return precautions given. Agreeable for plan. 0617: I do recommend the patient MiraLax 2 packets for the next 2 days. Increase his Dulcolax dose. Lots of water fruits and vegetables prunes. Additionally return emergency room if there is worsening abdominal pain fever vomiting. He understands. Source: Patient - Personal History Current Tetanus/Diphtheria Vaccine: Yes Current Tetanus Diphtheria and Acellular Pertussis (TDAP): Yes Tetanus Vaccine Date: 2010 - Medical/Surgical History Hx Asthma: No Hx Chronic Respiratory Disease: No Hx Diabetes: Yes Hx Cardiac Disease: Yes Hx Renal Disease: No Hx Cirrhosis: No Hx Alcoholism: No Hx HIV/AIDS: No Hx Splenectomy or Spleen Trauma: No Other PMH: PYLORIC STENOSIS, KIDNEY STONES, OSTEOMYOLITITS, ABD SURG. prostate ca, hyperlipidemia, bilateral detached retinas fixed w/ surgery, cataracts surgery, DM II not on insulin, open heart sx 07/27/17 - Social History Smoking Status: Never smoked Constitutional: Initial Vital Signs Temperature (C) 36.4 C 08/13/17 04:59 Heart Rate 89 08/13/17 04:59 Respiratory Rate 18 08/13/17 04:59 Blood Pressure 114/76 08/13/17 04:59 O2 Sat (%) 96 08/13/17 04:59 O2 Delivery Mode Room Air Allergies/Adverse Reactions: JOSH Inhibitors Allergy (Severe, Verified 08/13/17 05:03) Cough cimetidine [From Tagamet] Allergy (Severe, Verified 08/13/17 05:03) Other-Enter Comments atorvastatin Allergy (Verified 08/13/17 05:03) Other-Enter Comments Sulfa (Sulfonamide Antibiotics) Allergy (Verified 08/13/17 05:03) Rash Home Medications: Medication Instructions Recorded Aspirin EC [Aspirin EC 325 mg (*)] 325 mg PO HS 07/24/17 Azelastine [Astelin] 1 sprays EACHNARE HS 07/24/17 Cholecalciferol Vit D3 [Vitamin D3 1,000 units PO HS 07/24/17 (*)] Cyanocobalamin [Vitamin B12 (*)] 1,000 mcg PO DAILY 07/24/17 Glimepiride [Amaryl 2 MG (*)] 2 mg PO DAILY 07/24/17 Herbals/Supplements -Info Only 1 ea PO DAILY 07/24/17 Multivitamins [Multivitamin (*)] 1 each PO HS 07/24/17 Rosuvastatin Calcium [Crestor] 10 mg PO HS 07/24/17 Tamsulosin HCl [Flomax 0.4 MG (*)] 0.8 mg PO DAILY 07/24/17 metFORMIN HCL [Glucophage 500 mg 1,000 mg PO BIDMEAL 07/24/17 (*)] Acetaminophen [Tylenol 325mg (*)] 325 - 650 mg PO Q4HRS PRN tab 08/01/17 Amiodarone HCl [Pacerone (*)] 200 mg PO BID #40 tab 08/01/17 Metoprolol Tartrate [Lopressor 25 25 mg PO BID #60 tab 08/01/17 mg (*)] Ondansetron HCl [Zofran] 4 mg PO TID PRN #10 tablet 08/01/17 traMADol [Ultram 50 mg (*)] 50 mg PO Q6-8PRN PRN #20 tab 08/01/17 Polyethylene Glycol 3350 [Miralax 17 gm PO DAILY #4 pkt 08/13/17 17 gm (*)] Medical Decision Making - Data Points Laboratory Results: Laboratory Results 08/13/17 05:37 08/13/17 05:37 08/13/17 08/13/17 05:37 05:37 WBC 9.25 10^3/uL 10^3/uL (3.80-9.50) RBC 5.08 10^6/uL 10^6/uL (4.40-6.38) Hgb 15.4 g/dL g/dL (13.7-17.5) Hct 44.6 % % (40.0-51.0) MCV 87.8 fL fL (81.5-99.8) MCH 30.3 pg pg (27.9-34.1) MCHC 34.5 g/dL g/dL (32.4-36.7) RDW 14.4 % % (11.5-15.2) Plt Count 309 10^3/uL 10^3/uL (150-400) MPV 8.3 fL L fL (8.7-11.7) Neut % (Auto) 71.2 % % (39.3-74.2) Lymph % (Auto) 17.3 % % (15.0-45.0) [place] % (Auto) 7.6 % % (4.5-13.0) Eos % (Auto) 2.8 % % (0.6-7.6) Baso % (Auto) 0.8 % % (0.3-1.7) Nucleat RBC Rel Count 0.0 % % (0.0-0.2) Absolute Neuts (auto) 6.59 10^3/uL H 10^3/uL (1.70-6.50) Absolute Lymphs (auto) 1.60 10^3/uL 10^3/uL (1.00-3.00) Absolute Monos (auto) 0.70 10^3/uL 10^3/uL (0.30-0.80) Absolute Eos (auto) 0.26 10^3/uL 10^3/uL (0.03-0.40) Absolute Basos (auto) 0.07 10^3/uL 10^3/uL (0.02-0.10) Absolute Nucleated RBC 0.00 10^3/uL 10^3/uL (0-0.01) Immature Gran % 0.3 % % (0.0-1.1) Immature Gran # 0.03 10^3/uL 10^3/uL (0.00-0.10) Sodium 137 mEq/L mEq/L (134-144) Potassium 4.4 mEq/L mEq/L (3.5-5.2) Chloride 100 mEq/L mEq/L (97-110) Carbon Dioxide 21 mEq/l L mEq/l (22-31) Anion Gap 16 mEq/L mEq/L (8-16) BUN 23 mg/dL mg/dL (7-23) Creatinine 1.2 mg/dL mg/dL (0.7-1.3) Estimated GFR 59 Glucose 125 mg/dL H mg/dL (70-100) Calcium 9.5 mg/dL mg/dL (8.5-10.4) Total Bilirubin 0.7 mg/dL mg/dL (0.1-1.4) Conjugated Bilirubin 0.4 mg/dL mg/dL (0.0-0.5) Unconjugated Bilirubin 0.3 mg/dL mg/dL (0.0-1.1) AST 29 IU/L IU/L (17-59) ALT 39 IU/L IU/L (21-72) Alkaline Phosphatase 79 IU/L IU/L (38-126) Total Protein 7.0 g/dL g/dL (6.3-8.2) Albumin 4.1 g/dL g/dL (3.5-5.0) Lipase 327 IU/L H IU/L (23-300) Medications Given: Discontinued Medications Sodium Chloride (Ns) 1,000 mls @ 0 mls/hr IV EDNOW ONE; Wide Open PRN Reason: Protocol Stop: 08/13/17 05:22 Last Admin: 08/13/17 05:59 Dose: 1,000 mls Departure - Departure Disposition: Home, Routine, Self-Care Clinical Impression: Constipation Qualifiers: Constipation type: other constipation type Qualified Code(s): K59.09 - Other constipation Condition: Good Instructions: Constipation (ED) Additional Instructions: 1.Increase your fruits and vegetables as well as water intake. 2. MiraLax 2 packets for the next 2 days. 3. Return emergency room immediately if he develops worsening abdominal pain fever vomiting. Referrals: Marilee Rodriguez MD [Primary Care Provider] - As per Instructions Prescriptions: Polyethylene Glycol 3350 [Miralax 17 gm (*)] 17 gm PO DAILY #4 pkt
[2017-08-13] MEDS ORDERED: NS 1,000 ML IV ONE (05:21)
[2017-08-13 05:47] LABS: % IMMATURE GRANULYOCYTES 0.3 % (0.0-1.1); ABSOLUTE IMMATURE GRANULOCYTES 0.03 10^3/uL (0.00-0.10); ADD DIFF? NO; ADD MORPH? NO; ADD SCAN? NO; ATYPICAL LYMPHOCYTE FLAG 10 (0-99); FRAGMENT RBC FLAG 0 (0-99); HEMATOCRIT 44.6 % (40.0-51.0); HEMOGLOBIN 15.4 g/dL (13.7-17.5); LEFT SHIFT FLG 0 (0-99); LIPEMIA HEMOLYSIS FLAG 90 (0-99); MEAN CELL HEMOGLOBIN 30.3 pg (27.9-34.1); MEAN CELL HEMOGLOBIN CONCENTR. 34.5 g/dL (32.4-36.7); MEAN CELL VOLUME 87.8 fL (81.5-99.8); MEAN PLATELET VOLUME 8.3 fL (8.7-11.7); PLATELET CLUMPS FLAG 10 (0-99); PLATELET COUNT 309 10^3/uL (150-400); RED BLOOD CELL COUNT 5.08 10^6/uL (4.40-6.38); RED CELL DISTRIBUTION WIDTH 14.4 % (11.5-15.2)
[2017-08-13 06:03] LABS: ALANINE AMINOTRANSFERASE 39 IU/L (21-72); ALBUMIN 4.1 g/dL (3.5-5.0); ALKALINE PHOSPHATASE 79 IU/L (38-126); ANION GAP 16 mEq/L (8-16); ASPARTATE AMINOTRANSFERASE 29 IU/L (17-59); BILIRUBIN,TOTAL 0.7 mg/dL (0.1-1.4); BILIRUBIN-CONJUGATED 0.4 mg/dL (0.0-0.5); BILIRUBIN-UNCONJUGATED 0.3 mg/dL (0.0-1.1); CALCIUM 9.5 mg/dL (8.5-10.4); CARBON DIOXIDE 21 mEq/l (22-31); CHLORIDE 100 mEq/L (97-110); CREATININE 1.2 mg/dL (0.7-1.3); GLOMERULAR FILTRATION RATE 59; GLUCOSE 125 mg/dL (70-100); POTASSIUM 4.4 mEq/L (3.5-5.2); SODIUM 137 mEq/L (134-144)
[2017-08-13 06:30] VITALS: BP 112/63; PULSE 74; RESP 16; TEMP 97.9; O2SAT 93
== END 2017-08-13 06:35 | disposition home or self-care (01) ==
DX: K59.09 Other constipation (principal); E86.9 Volume depletion, unspecified; E11.9 Type 2 diabetes mellitus without complications; I25.810 Atherosclerosis of coronary artery bypass graft(s) without angina pectoris; Z79.82 Long term (current) use of aspirin; Z79.84 Long term (current) use of oral hypoglycemic drugs; Z85.46 Personal history of malignant neoplasm of prostate

== ENCOUNTER → 2017-08-19 | Outpatient (CLI) | payer OTHER | LOC: FIMAGING 08:46 | PROVIDERS: ATTEND Thoracic Surgery (Cardiothoracic Vascular Surgery) | DX: J90 Pleural effusion, not elsewhere classified (principal) ==

== ENCOUNTER → 2017-09-29 | Outpatient (CLI) | payer OTHER | LOC: FIMAGING 15:32 | PROVIDERS: ATTEND Internal Medicine Cardiovascular Disease | DX: J90 Pleural effusion, not elsewhere classified (principal) ==

== ENCOUNTER → 2017-10-02 | Outpatient (CLI) | payer OTHER | LOC: FIMAGING 08:25 | PROVIDERS: ATTEND Internal Medicine Cardiovascular Disease | PROC: 0W9B3ZZ Drainage of Left Pleural Cavity, Percutaneous Approach (ICD-10-PCS; principal; 2017-10-02) | DX: J90 Pleural effusion, not elsewhere classified (principal) ==

== ENCOUNTER → 2018-01-26 | Outpatient (CLI) | payer OTHER | LOC: BHFA 15:30 | PROVIDERS: ATTEND Internal Medicine Cardiovascular Disease | DX: I73.9 Peripheral vascular disease, unspecified (principal) ==

== ENCOUNTER → 2018-05-07 | Outpatient (CLI) | payer OTHER | LOC: BMCIMAGING 11:41 | PROVIDERS: ATTEND Internal Medicine | DX: M25.561 Pain in right knee (principal); M23.52 Chronic instability of knee, left knee ==

== ENCOUNTER → 2018-06-23 | Outpatient (CLI) | payer OTHER | LOC: BHFA 15:15 | PROVIDERS: ATTEND Internal Medicine Cardiovascular Disease | DX: I25.10 Atherosclerotic heart disease of native coronary artery without angina pectoris (principal); E78.5 Hyperlipidemia, unspecified ==

== ENCOUNTER → 2018-11-30 | Outpatient (CLI) | payer OTHER | LOC: BHFA 09:00 | PROVIDERS: ATTEND Internal Medicine Cardiovascular Disease | DX: I25.10 Atherosclerotic heart disease of native coronary artery without angina pectoris (principal); R53.83 Other fatigue; R01.1 Cardiac murmur, unspecified | CPT/HCPCS: 78452; 93017; A9500; J2785 ==

== ENCOUNTER → 2018-12-07 | Outpatient (CLI) | payer OTHER ==
[~2018-12-07] MED LIST changes: +IOHEXOL 350mgI/ML (OMNIPAQUE) 150 ML BTL IV ONE; -LIDOCAINE 1% 300 MG/30 ML SDV ONE
== END ==
LOC: FIMAGING 14:38
PROVIDERS: ATTEND Internal Medicine Cardiovascular Disease
DX: I70.0 Atherosclerosis of aorta (principal); I77.89 Other specified disorders of arteries and arterioles; I73.9 Peripheral vascular disease, unspecified; I25.10 Atherosclerotic heart disease of native coronary artery without angina pectoris; E78.5 Hyperlipidemia, unspecified; R01.1 Cardiac murmur, unspecified; M89.8X6 Other specified disorders of bone, lower leg; K80.20 Calculus of gallbladder without cholecystitis without obstruction
CPT/HCPCS: 75635; Q9967

== ENCOUNTER → 2018-12-08 | Outpatient (CLI) | payer OTHER | LOC: BHFA 13:15 | PROVIDERS: ATTEND Internal Medicine Cardiovascular Disease | DX: R01.1 Cardiac murmur, unspecified (principal) ==

== ENCOUNTER → 2019-01-24 | Outpatient (CLI) | payer OTHER | LOC: FIMAGING 18:50 | PROVIDERS: ATTEND Psychiatry & Neurology Neurology | DX: R90.82 White matter disease, unspecified (principal); J34.89 Other specified disorders of nose and nasal sinuses | CPT/HCPCS: 70551-PN ==

== ENCOUNTER → 2019-01-28 | Outpatient (CLI) | payer OTHER ==
[~2019-01-28] MED LIST changes: +GADOBUTROL 10 ML VIAL IVP ONE; -IOHEXOL 350mgI/ML (OMNIPAQUE) 150 ML BTL IV ONE
== END ==
LOC: FIMAGING 08:50
PROVIDERS: ATTEND Psychiatry & Neurology Neurology
DX: R22.0 Localized swelling, mass and lump, head (principal)
CPT/HCPCS: 70552; A9585; 82565-PO

== ENCOUNTER → 2019-03-01 | Outpatient (CLI) | payer OTHER | LOC: FIMAGING 09:02 | PROVIDERS: ATTEND Otolaryngology | DX: R22.0 Localized swelling, mass and lump, head (principal) ==